=== PATIENT | male | born 1955 | race Caucasian/White ===

== ENCOUNTER 2024-05-06 13:25 | Inpatient (IN) ==
--- NOTE | 2024-05-06 13:59 | Emergency Department Note ---
Impression & Plan Anasarca, Pleural effusion, bilateral, Cirrhosis of liver, Elevated troponin ED Provider Note NAME: KAI ORLANDO AGE: 68 SEX: M : 1955 ARRIVES VIA: Walk-In INFORMANT: Patient ED PROVIDER(S): Catrachito Olivarez DO CHIEF COMPLAINT: shortness of breath HPI: Patient is a 68-year-old male with a past medical history of cirrhosis who presents to the ER for swelling in his bilateral lower extremities. He notes this has been off and on since August. Started again 2 weeks ago. He admits to taking a fair amount of Lasix. He had a CT done which showed fluid in his lungs. He admits to worsening shortness of breath over the past 2 weeks. Denies any headache or change in vision. No chest pain but admits to an upset stomach for about 4 to 5 hours after eating. Denies any vomiting or diarrhea. Does have loose bowel movements. No dysuria, urgency, or frequency. No other exacerbating or remitting factors. ADDITIONAL HISTORY OBTAINED: Per HPI Chronic Medical/Social Conditions Affecting Care: Per HPI PAST MEDICAL HISTORY:See Below PAST SURGICAL HISTORY:See Below FAMILY HISTORY:See Below SOCIAL HISTORY:See Below HOME MEDICATIONS:See Below ALLERGIES:See Below VITALS:See Below PHYSICAL EXAMINATION: GENERAL: Sitting up in bed, alert, well appearing, well nourished, no distress, non-toxic EYE EXAM: normal conjunctiva. PERRL and EOM's grossly intact. OROPHARYNX: mucous membranes are moist NECK: supple, no nuchal rigidity, no adenopathy, non-tender LUNGS: Clear to auscultation. Normal chest wall mechanics HEART: no murmurs, S1 normal and S2 normal ABDOMEN: abdomen soft, non-tender, normo-active bowel sounds, no masses, no rebound or guarding. UPPER EXTREMITIES: upper extremities are grossly normal. LOWER EXTREMITIES: Pitting edema tracking up to hips NEURO EXAM: Normal sensorium, cranial nerves II-XII grossly intact, normal speech, no gross weakness of arms, no gross weakness of legs. MEDICAL DECISION MAKING: Patient is a 68-year-old male who presents ER for the above-stated complaint. IV was established and blood work was obtained. Labs showed no significant leukocytosis and a mild anemia 11. CT performed at 611 MRI shows moderate bilateral pleural effusions which was performed on 04/24/2024. BMP was fairly unremarkable. LFTs and bilirubin was unremarkable. Troponin was positive. proBNP was elevated at nearly thousand. Lipase normal. UA contaminated. Patient was given IV Lasix. Chest x-ray with congestive changes. Patient was updated bedside. Discussed with the hospitalist for further evaluation management treatment. Consults/Care Managements Discussions: Per MDM Triage Nursing notes reviewed. Limited review of prior medical records performed Vital Signs: reviewed and remarkable for HTN Differential diagnosis: Differential diagnoses includes but is not limited to pneumonia, bronchitis, COPD/Asthma exacerbation, pneumothorax, pulmonary embolism, congestive heart failure, acute coronary syndrome ER treatment provided: See below Diagnostics interpreted by me include EKG and cardiac monitoring as listed below: -Cardiac Monitoring: An order was placed for continuous cardiac monitoring. The monitor shows a rate of 70 with sinus rhythm. -ECG: Sinus rhythm rate 67 Normal axis No PVCs QTc 426 -Laboratory studies:Interpreted by me as stated above in MDM and shown below. Imaging studies: Xrays: As interpreted by me: Portable AP upright 1 view of the chest shows congestive changes CTs show: none Procedures:none Critical Care: None Past Med/Surg History Problem List (Updated 05/06/24 @ 20:17 by Catrachito Olivarez DO) Ascites CKD (chronic kidney disease) Anemia Elevated troponin (Acute) Hypoalbuminemia Cirrhosis of liver (Acute) History of SD (myocardial infarction) Anasarca (Acute) Pleural effusion, bilateral (Acute) Social History Smoking Status: Never smoker Feels Safe at Home: Yes Allergies Allergies Allergy/AdvReac Type Severity Reaction Status Date / Time No Known Allergies Allergy Unverified 05/06/24 16:04 Home Meds Home Medications Medication Instructions Recorded Confirmed B12 1 tab PO DAILY 05/06/24 05/06/24 Cinnamon 1 tab PO DAILY 05/06/24 05/06/24 Co Q-10 1 cap PO DAILY 05/06/24 05/06/24 Vitamin C 1 tab PO DAILY 05/06/24 05/06/24 Vitamin D3 1 tab PO DAILY 05/06/24 05/06/24 aspirin 81 mg tablet,delayed 81 mg PO DAILY 05/06/24 05/06/24 release atorvastatin 20 mg tablet 20 mg PO DAILY 05/06/24 05/06/24 fosinopril 40 mg tablet 40 mg PO BID 05/06/24 05/06/24 furosemide 40 mg tablet 80 mg PO BID 05/06/24 05/06/24 magnesium glycinate 200 mg PO DAILY 05/06/24 05/06/24 metoprolol succinate 100 mg 100 mg PO DAILY 05/06/24 05/06/24 tablet,extended release 24 hr potassium chloride 20 mEq 20 meq PO UD 05/06/24 05/06/24 tablet,extended release(part/cryst) spironolactone 50 mg tablet 50 mg PO BID 05/06/24 05/06/24 turmeric 1 cap PO DAILY 05/06/24 05/06/24 zinc 1 tab PO DAILY 05/06/24 05/06/24 Results & Data (ED) Vital Signs Vital Signs - 24 hr 05/06/24 13:29 05/06/24 13:56 05/06/24 14:00 Temperature 36.5 C Temperature Source Temporal Artery Scan Pulse Rate 85 74 Pulse Rate [Apical] 74 Respiratory Rate 20 18 Respiratory Effort / Characteristics Non-Labored Spontaneous Respiratory Depth Normal Respiratory Pattern Regular Blood Pressure 188/96 H Blood Pressure [Left Arm] 182/96 H Blood Pressure Mean 126 Blood Pressure Mean [Left Arm] 124 Blood Pressure Position [Left Arm] Semi-fowlers Pulse Oximetry 98 97 Oxygen Delivery Method Room Air Sepsis Recent Fever Within 48 Hours No Sepsis New/Unexplained Change in Mental Status N/A Sepsis Action Taken by Nursing No Action Required 05/06/24 14:00 05/06/24 15:00 Temperature Temperature Source Pulse Rate 69 Pulse Rate [Apical] 75 Respiratory Rate 20 18 Respiratory Effort / Characteristics Non-Labored Spontaneous Respiratory Depth Normal Respiratory Pattern Regular Blood Pressure Blood Pressure [Left Arm] 165/89 H Blood Pressure Mean Blood Pressure Mean [Left Arm] 114 Blood Pressure Position [Left Arm] Pulse Oximetry 97 96 Oxygen Delivery Method Room Air Room Air Sepsis Recent Fever Within 48 Hours Sepsis New/Unexplained Change in Mental Status Sepsis Action Taken by Nursing Laboratory Data 05/06/24 13:56 05/06/24 13:56 Lab Results 05/06/24 Range/Units 13:56 WBC 6.83 (4.8-10.8) K/ul RBC 3.63 L (4.70-6.10) M/uL Hgb 11.0 L (14.0-18.0) g/dl Hct 32.6 L (42.0-52.0) % MCV 89.8 (80.0-100.0) fL MCH 30.3 (25.0-34.0) pg MCHC 33.7 (32.0-36.0) g/dL RDW Std Deviation 42.5 (36.4-46.3) fL RDW Coeff of Laure 12.7 (11.5-14.5) % Plt Count 337 (130-400) K/uL MPV 10.1 (9.4-12.4) fL Immature Gran % (Auto) 0.3 % Neut % (Auto) 72.1 % Lymph % (Auto) 16.3 % [place] % (Auto) 7.8 % Eos % (Auto) 2.9 % Baso % (Auto) 0.6 % Neut # (Auto) 4.93 (1.40-6.50) K/uL Lymph # (Auto) 1.11 L (1.20-3.40) K/uL [place] # (Auto) 0.53 (0.11-0.59) K/uL Eos # (Auto) 0.20 (0.00-0.50) K/uL Baso # (Auto) 0.04 (0.00-0.20) K/uL Immature Gran # (Auto) 0.02 (0.01-0.20) K/uL Sodium 139 (136-145) mmol/L Potassium 4.6 (3.5-5.1) mmol/L Chloride 111 H (98-107) mmol/L Carbon Dioxide 24 (21-32) mmol/L Anion Gap 4 (3-11) BUN 43 H (6-23) mg/dl Creatinine 1.48 H (0.6-1.4) mg/dl Est Cr Clr Drug Dosing 71.8 ml/min eGFR 51.21 BUN/Creatinine Ratio 29.1 H (10-20) Glucose 102 H (70-99(Fasting)) mg/dl Calcium 8.9 (8.6-10.3) mg/dl Total Bilirubin 0.4 (0.2-1.0) mg/dl AST 19 (13-39) U/L ALT 8 (7-52) U/L Alkaline Phosphatase 42 (34-104) U/L Troponin I High Sens 37.0 H (0-20) pg/ml B-Natriuretic Peptide 992 H (0-100) pg/ml Total Protein 5.2 L (6.0-8.3) gm/dl Albumin 2.0 L (3.4-5.0) gm/dl Globulin 3.2 (2.5-4.0) gm/dl Albumin/Globulin Ratio 0.6 L (0.9-2) Lipase 14 (11-82) U/L Administered Medications Discontinued Medications Furosemide (Furosemide 40 Mg/4 Ml Vial) 40 mg IV NOW STA Stop: 05/06/24 15:00 Last Admin: 05/06/24 15:14 Dose: 40 mg Documented By: CULLEN Furosemide (Furosemide 40 Mg/4 Ml Vial) 40 mg IV ONE STA Stop: 05/06/24 19:15 Last Admin: 05/06/24 19:50 Dose: Not Given Documented By: MARYBETH Furosemide (Furosemide 40 Mg/4 Ml Vial) 80 mg IV ONE STA Stop: 05/06/24 19:17 Last Admin: 05/06/24 19:50 Dose: 80 mg Documented By: MARYBETH Imaging Data Radiologist's Impression: Chest X-Ray 05/06/24 13:54 XR chest 1V portable HISTORY: 68 years-old Male Chest pain, nonspecific COMPARISON: None TECHNIQUE: AP view the chest FINDINGS: Cardiac silhouette is enlarged. Pulmonary vascular congestion. Small pleural effusions with mild bibasilar atelectasis. Coarsening of interstitium. Bones appear grossly intact. IMPRESSION: 1. Cardiomegaly with mild interstitial pulmonary edema. 2. Small pleural effusions with mild bibasilar atelectasis. ACT 112: Negative or not required by law. The above report was generated using voice recognition software. It may contain grammatical, syntax or spelling errors. Electronically signed by: David Ferreira M.D. 05/06/2024 2:55 PM Discharge Plan Visit Data Chief Complaint: Swelling/Edema to Extremity Stated Complaint: LIVER FAILURE, LUNGS HAVE FLUID, EDEMA/FLUID/BODY ED Provider: Catrachito Olivarez Discharge Problem: Anasarca, Pleural effusion, bilateral, Cirrhosis of liver, Elevated troponin Patient Disposition: Admitted As Inpatient Discharge Instructions Interventions: ED Discharge Assessment Last Done: 05/06/24 19:42
[2024-05-06 14:21] LABS: Basophils # (auto) 0.04 K/uL (0.00-0.20); Basophils % (auto) 0.6 %; Eosinophils % (auto) 2.9 %; Hematocrit (blood only) 32.6 % (42.0-52.0); Immature Granulocytes # (auto) 0.02 K/uL (0.01-0.20); Immature Granulocytes % (auto) 0.3 %; Lymphocytes # (auto) 1.11 K/uL (1.20-3.40); Lymphocytes % (auto) 16.3 %; Mean Corpuscular Hemoglobin 30.3 pg (25.0-34.0); Mean Corpuscular Hgb Conc 33.7 g/dL (32.0-36.0); Mean Corpuscular Volume 89.8 fL (80.0-100.0); Mean Platelet Volume 10.1 fL (9.4-12.4); Monocytes # (auto) 0.53 K/uL (0.11-0.59); Monocytes % (auto) 7.8 %; Neutrophils # (auto) 4.93 K/uL (1.40-6.50); Neutrophils % (auto) 72.1 %; Platelet Count 337 K/uL (130-400); RDW Coefficient of Variation 12.7 % (11.5-14.5); RDW Standard Deviation 42.5 fL (36.4-46.3); Red Blood Count 3.63 M/uL (4.70-6.10); White Blood Count 6.83 K/ul (4.8-10.8)
[2024-05-06 14:43] LABS: Albumin Globulin Ratio 0.6 (0.9-2); BUN Creatinine Ratio 29.1 (10-20); Bilirubin,Total 0.4 mg/dl (0.2-1.0); Calcium 8.9 mg/dl (8.6-10.3); Creatinine Clr Calc Pharmacy 71.8 ml/min; Globulin 3.2 gm/dl (2.5-4.0); Potassium 4.6 mmol/L (3.5-5.1); Total Protein 5.2 gm/dl (6.0-8.3)
--- NOTE | 2024-05-06 14:57 | XRay Report ---
XR chest 1V portable HISTORY: 68 years-old Male Chest pain, nonspecific COMPARISON: None TECHNIQUE: AP view the chest FINDINGS: Cardiac silhouette is enlarged. Pulmonary vascular congestion. Small pleural effusions with mild biba silar atelectasis. Coarsening of interstitium. Bones appear grossly intact. IMPRESSION: 1. Cardiomegaly with mild interstitial pulmonary edema. 2. Small pleural effusions with mild bibasilar atelectasis. ACT 112: Negative or not required by law. The above report was generated using voice recognition software. It may contain grammatical, syntax o r spelling errors. Electronically signed by: David Ferreira M.D. 05/06/2024 2:55 PM
[2024-05-06] MEDS: FUROSEMIDE 40 MG/4 ML VIAL IV STA ×3 (15:14→19:50)
--- NOTE | 2024-05-06 15:16 | History & Physical Report ---
Date of Service May 06, 2024 Assessment & Plan (1) Pleural effusion, bilateral: Plan: Worsening LE edema and orthopnea x 2-3 weeks Patient had an A/P CT done at [address] [place] [address] on 04/24 which revealed the following: Moderate to large b/l pleural effusions with comprehensive atelectasis, anasarca, ascites, and edematous changes throughout the mesentery; likely consistent with volume overload Patient is unsure about history of CHF Echocardiogram ordered, pending BNP elevated at 992 on arrival (was previously 756 on 02/22 at [facility]) Patient is normally on Lasix 80 mg BID and spironolactone 50 mg BID + K supplementation Increase Lasix 80 mg IV BID Increase spironolactone to 100 mg p.o. BID Continue K supplementation to 40meq QAM and 20mEq QPM Heart healthy, low-sodium diet (1200 mL fluid restriction) Daily weights Strict I&O monitoring A.m. CBC, BMP, PT/INR (2) History of FL (myocardial infarction): Plan: Per patient, 5 years ago S/p MALU Continue aspirin daily (3) Cirrhosis of liver: Plan: Patient has been trying to get in with [facility] in [place] A/P CT on 04/24 did reveal ascites Recommend outpatient follow-up with senior software developer for full workup (AFP, hep panel, etc.) (4) Ascites: Plan: Ultrasound-guided paracentesis ordered for the morning of 05/07 (5) CKD (chronic kidney disease): Plan: BUN 43, creatinine 1.48 (around baseline 1.46 per [facility] records on 02/22) Avoid nephrotoxic agents where possible UA ordered Pr/Cr ratio ordered, pending (6) Anemia: Plan: Hgb 11.0 on arrival; was most recently 11.3 on 02/22 (per patient's [facility] records) No signs of active bleeding on clinical exam; trend CBC (7) Hypoalbuminemia: (8) Anasarca: (9) Elevated troponin: (10) Nephrotic range proteinuria: Plan Disposition: Admit to [facility] telemetry Full code Heart healthy, low-sodium diet (1200 mL fluid restriction) VTE PPx: Hold chemical DVT PPx prior to paracentesis History of Present Illness Chief Complaint: Swelling/edema to lower extremities Primary Care Provider: Chito Menjivar is a 68-year-old male with PMH of liver cirrhosis, FL, CAD s/p MALU, gastric banding, and CKD. He presented on 05/06 for worsening orthopnea and lower extremity edema x 2-[address] weeks[address] a [address] A/P performed on 04/24 that reported he had fluid throughout his abdomen/testicles/lower extremities bilaterally. Patient follows with [facility], and was recently referred to [facility] in [place] for anasarca suspected secondary to his liver cirrhosis. His PCP ordered the CT A/P when the swelling became progressively worse. While he denies SOB at rest or with exertion, he does endorse orthopnea, which only went away 2 days ago. Patient takes 80 mg of Lasix p.o. twice daily, as well as spironolactone 50 mg twice daily. He took his regular morning medicine today, and reports that his diuretics were increased 1 month ago: Lasix was increased from 1 pill twice daily to 2 pills twice daily, and spironolactone was increased from once daily to twice daily. Despite this, he is still having significant fluid overload. Patient has history of an FL 5 years ago for which she had 1 heart stent placed; he had no shortness of breath or chest pain secondary to the FL, and reports that he takes aspirin daily with good consistency. Patient sleeps in a recliner. No supplemental oxygen or CPAP at night. He reports that he sometimes feels like his heart is fluttering or racing fast, but he denies any chest palpitations or history of A-fib/a flutter; these episodes last around 10 seconds and they occur once every 3 weeks. He does report he has changed his diet recently; after he was told that he had low protein, he has been trying to have 100 grams of protein daily with chicken salads; however this led to sig nificant bloating and he reports he is gained 14 pounds over the past week. He also reports that he was feeling sick on Monday and felt like his skin was tight like "leather" on his flanks, abdomen, and testicles. No history of CHF to his knowledge, but he is unsure. Patient does not ambulate with a walker or cane at baseline. He denies smoking, or tobacco use. No recent alcohol use; he does endorse heavy alcohol use in his 20s. No history of DVT/PE. Patient is hypertensive 165/89 at time of admission; vitals otherwise stable. ED course: Lasix 40 mg IV ROS: Patient endorses orthopnea, abdominal pain secondary to distention/swelling, nausea, dry heaves x 1 day over the weekend, loose stool, "leathery skin", LE edema, decreased urinary frequency (1/3rd of what he was peeing; noticed 2 months ago), and leg heaviness. Patient denies fever, chills, night-sweats, dizziness, lightheadedness, headaches, chest pain, chest palpitations, pleuritic CP, cough, vomiting, burning with urination, blood in the urine/stool, or dysuria. Note - the following labs were obtained from patient in the ED via [facility] portal: [facility] labs on Feb 22: Hgb 11.3 BUN 44 Cr 1.46 eGFR 52 Albumin 1.5 BNP 756 Allergies Allergy/AdvReac Type Severity Reaction Status Date / Time No Known Allergies Allergy Unverified 05/06/24 16:04 Home Medications Medication Instructions Recorded Confirmed Type B12 1 tab PO DAILY 05/06/24 05/06/24 History Cinnamon 1 tab PO DAILY 05/06/24 05/06/24 History Co Q-10 1 cap PO DAILY 05/06/24 05/06/24 History Vitamin C 1 tab PO DAILY 05/06/24 05/06/24 History Vitamin D3 1 tab PO DAILY 05/06/24 05/06/24 History aspirin 81 mg tablet,delayed 81 mg PO DAILY 05/06/24 05/06/24 History release atorvastatin 20 mg tablet 20 mg PO DAILY 05/06/24 05/06/24 History fosinopril 40 mg tablet 40 mg PO BID 05/06/24 05/06/24 History furosemide 40 mg tablet 80 mg PO BID 05/06/24 05/06/24 History magnesium glycinate 200 mg PO DAILY 05/06/24 05/06/24 History metoprolol succinate 100 mg 100 mg PO DAILY 05/06/24 05/06/24 History tablet,extended release 24 hr potassium chloride 20 mEq 20 meq PO UD 05/06/24 05/06/24 History tablet,extended release(part/cryst) spironolactone 50 mg tablet 50 mg PO BID 05/06/24 05/06/24 History turmeric 1 cap PO DAILY 05/06/24 05/06/24 History zinc 1 tab PO DAILY 05/06/24 05/06/24 History Past Med/Surg History Problem List (Updated 05/07/24 @ 07:58 by Donavan Rankin MD) Nephrotic range proteinuria Ascites CKD (chronic kidney disease) Anemia Elevated troponin (Acute) Hypoalbuminemia Cirrhosis of liver (Acute) History of FL (myocardial infarction) Anasarca (Acute) Pleural effusion, bilateral (Acute) Social History Smoking Status: Never smoker Hx Alcohol Use: No Hx Substance Use: No Preferred Language: [place] Communication Ability: Effective Clinching Machine Operator Required: No Beliefs That Will Affect Care: None Current Living Situation: Spouse Other Information That Helps Us Care for You: No Feels Safe at Home: Yes Safety Concerns: Feels Safe At This Time Assistive Devices: Denture - Upper, Denture - Lower and Glasses Review of Systems Review of Systems: See HPI above Physical Exam Physical Exam: General: no acute distress; pleasant affect; non-toxic appearing; cooperative; SpO2 96% on RA HEENT: normocephalic, atraumatic; no scleral icterus; PERRLA; vision and hearing grossly intact Neck: supple; no lymphadenopathy; trachea midline Skin: Significant generalized anasarca; warm, dry without signs of tenting; no cyanosis; no rashes, bruising, lesions, or erythema noted CV: chest wall NTP; RRR; S1/S2 normal; no murmurs/rubs/gallops; pulses intact and symmetric at radial, DP, and PT Lungs: no acute respiratory distress; symmetrical chest wall expansion; clear breath sounds across all lung retana w/o adventitious sounds; no wheezing ABD: Soft, NTP in all 4 quadrants; BS present; no rebound/guarding; moderate distention MSK: no tics or fasciculations; no edema noted in the LEs b/l, nonerythematous LEs: +3 pitting edema extending from the feet up to the thighs bilaterally; +3 pitting edema extends to the flanks and lower back Neuro: A&Ox3; normal mood and affect; fluent speech; no focal deficits; sensation intact and symmetric in lower extremities bilaterally Results & Data Results & Data Vital Signs (Past 12 Hours) Vital Signs Temp Pulse Pulse Resp BP BP Pulse Ox 05/06/24 15:00 75 18 165/89 H 96 11/04/24 14:00 69 20 97 05/06/24 14:00 74 18 182/96 H 97 05/06/24 13:56 74 05/06/24 13:29 36.5 C 85 20 188/96 H 98 O2 Del Method 05/06/24 15:00 Room Air 05/06/24 14:00 Room Air 05/06/24 14:00 Room Air 05/06/24 13:56 05/06/24 13:29 Laboratory Results Abnormal lab results 05/06/24 Range/Units 13:56 RBC 3.63 L (4.70-6.10) M/uL Hgb 11.0 L (14.0-18.0) g/dl Hct 32.6 L (42.0-52.0) % Lymph # (Auto) 1.11 L (1.20-3.40) K/uL Chloride 111 H (98-107) mmol/L BUN 43 H (6-23) mg/dl Creatinine 1.48 H (0.6-1.4) mg/dl BUN/Creatinine Ratio 29.1 H (10-20) Glucose 102 H (70-99(Fasting)) mg/dl Troponin I High Sens 37.0 H (0-20) pg/ml Total Protein 5.2 L (6.0-8.3) gm/dl Albumin 2.0 L (3.4-5.0) gm/dl Albumin/Globulin Ratio 0.6 L (0.9-2) Diagnostic Findings Chest X-Ray 05/06/24 13:54 XR chest 1V portable HISTORY: 68 years-old Male Chest pain, nonspecific COMPARISON: None TECHNIQUE: AP view the chest FINDINGS: Cardiac silhouette is enlarged. Pulmonary vascular congestion. Small pleural effusions with mild bibasilar atelectasis. Coarsening of interstitium. Bones appear grossly intact. IMPRESSION: 1. Cardiomegaly with mild interstitial pulmonary edema. 2. Small pleural effusions with mild bibasilar atelectasis. ACT 112: Negative or not required by law. The above report was generated using voice recognition software. It may contain grammatical, syntax or spelling errors. Electronically signed by: David Ferreira M.D. 05/06/2024 2:55 PM ECG Additional Comments: ECG revealed NSR at 67 bpm; QTc 426 Code Status & VTE Plan Code Status Full code VTE Prophylaxis Plan VTE Prophylaxis will be ordered: Yes Supervising Physician Co-Signing Physician Notes I personally saw and examined the patient. I independently reviewed the labs, EKG, imaging, problem list, medication list, past medical history and family history. I verified all slater points and agree with Ángel Marroquin PA-C with the following exceptions and/or additions: 68 year old male presents to the ER with hypervolemia, shortness of breath on light exertion, liver cirrhosis and ascites on outside CT. O/E HS RRR, no murmurs, Chest bibasal crackles, Abdo distended but soft, non tender, 3+ pedal edema b/l equal A/P Hypervolemic state - suspect mostly secondary to CKD with nephrotic range proteinuria rather than cirrhosis. Increase Lasix to 80mg IV TID given no significant output with 40mg IV in ER and increase spironolactone to 100mg PO BID. I&Os. Daily weight, Low Na diet. TTE to assess for cardiac involvement - pericardial effusion seen on POCUS US CKD with nephrotic range proteinuria - consult nephrology for further workup. Continue fosinopril Liver cirrhosis - consult gastroenterology for further workup, EGD as outpatient, IR paracentesis for mainly diagnostic purposes as not large on POCUS US PG Care Time/CCT Total # of Minutes Spent Total Time Spent with Patient: Total time spent is greater than 50% in coordination of care (as documented) at patient's floor/unit and/or counseling patient: [place] [address] INT INP/OBS CARE 3/75MIN Patient Type New Medical Decision Making High Complexity Diagnoses Pleural effusion, bilateral J90 History of FL (myocardial infarction) I25.2 Cirrhosis of liver K74.60 Ascites R18.8 CKD (chronic kidney disease) N18.9 Anemia D64.9 Hypoalbuminemia E88.09 Anasarca R60.1 Elevated troponin R79.89 Nephrotic range proteinuria R80.9
--- NOTE | 2024-05-06 15:19 | Electrocardiogram Report ---
Test Reason : Blood Pressure : */* mmHG Vent. Rate : 67 BPM Atrial Rate : 67 BPM P-R Int : 166 ms QRS Dur : 82 ms QT Int : 404 ms P-R-T Axes : 17 -15 0 degrees QTcB Int : 426 ms Normal sinus rhythm Normal ECG No previous ECGs available Confirmed by Andrew Marie ([id number]) on 05/06/2024 3:18:53 PM Referred By: Chito Bhardwaj Confirmed By: Andrew Marie
[2024-05-06 17:51] LABS: Appearance Urine Clear (Clear); Bacteria Urine Automated None Seen (None Seen); Bilirubin Urine Negative (Negative); Blood Urine 2+ (Negative); Cast Urine Automated >20 /lpf (0-2); Color Urine Yellow; Glucose Urine UA 1+ (Negative); Hyaline Casts Urine Present /lpf (None Presnt); Ketones Urine Trace (Negative); Leukocyte Esterase Urine Negative (Negative); Nitrite Urine Negative (Negative); Protein Urine 4+ (Negative); Specific Gravity Urine 1.021 (1.000-1.030); Urobilinogen Urine Negative (Negative); WBC Urine Automated 0-5 /hpf (0-5); pH Urine 5.5 (4.5-7.5)
[2024-05-06 18:38] LABS: Creatinine Urine Random 78.4 mg/dl; Total Protein Urine Random > 1000.0 mg/dl (0-11.9)
[2024-05-06] MEDS: lisinopril 40 MG TAB PO SCH (21:02)
[2024-05-06] MEDS: SPIRONOLACTONE 100 MG TAB PO SCH (21:02)
[2024-05-06] MEDS: POTASSIUM CHLORIDE CRTAB 20 MEQ TABCR PO SCH (21:06)
[2024-05-07 06:41] LABS: Basophils # (auto) 0.03 K/uL (0.00-0.20); Basophils % (auto) 0.6 %; Eosinophils # (auto) 0.27 K/uL (0.00-0.50); Eosinophils % (auto) 5.6 %; Hematocrit (blood only) 27.3 % (42.0-52.0); Hemoglobin 9.2 g/dl (14.0-18.0); Immature Granulocytes # (auto) 0.01 K/uL (0.01-0.20); Immature Granulocytes % (auto) 0.2 %; Lymphocytes # (auto) 1.28 K/uL (1.20-3.40); Lymphocytes % (auto) 26.4 %; Mean Corpuscular Hemoglobin 30.5 pg (25.0-34.0); Mean Corpuscular Hgb Conc 33.7 g/dL (32.0-36.0); Mean Corpuscular Volume 90.4 fL (80.0-100.0); Monocytes # (auto) 0.47 K/uL (0.11-0.59); Monocytes % (auto) 9.7 %; Neutrophils # (auto) 2.78 K/uL (1.40-6.50); Neutrophils % (auto) 57.5 %; Platelet Count 260 K/uL (130-400); RDW Coefficient of Variation 12.9 % (11.5-14.5); RDW Standard Deviation 42.5 fL (36.4-46.3); Red Blood Count 3.02 M/uL (4.70-6.10); White Blood Count 4.84 K/ul (4.8-10.8)
[2024-05-07 07:01] LABS: INR 0.9 (0.9-1.1); Prothrombin Time 10.3 Seconds (9.0-12.0)
[2024-05-07 07:20] LABS: Albumin Globulin Ratio 0.6 (0.9-2); Albumin Level 1.6 gm/dl (3.4-5.0); BUN Creatinine Ratio 27.2 (10-20); Bilirubin,Total 0.4 mg/dl (0.2-1.0); Calcium 8.4 mg/dl (8.6-10.3); Creatinine Clr Calc Pharmacy 73.1 ml/min; Globulin 2.6 gm/dl (2.5-4.0); Potassium 4.4 mmol/L (3.5-5.1); Total Protein 4.2 gm/dl (6.0-8.3)
[2024-05-07] MEDS: ATORVASTATIN 20 MG TAB PO SCH (08:00)
[2024-05-07] MEDS: ASPIRIN 81 MG ECTAB PO SCH (08:00)
[2024-05-07] MEDS: METOPROLOL SUCC 50MG EXT REL TAB PO SCH (08:00)
[2024-05-07] MEDS: POTASSIUM CHLORIDE CRTAB 20 MEQ TABCR PO SCH (08:01)
[2024-05-07] MEDS: FUROSEMIDE 40 MG/4 ML VIAL IV SCH (08:01)
[2024-05-07] MEDS ORDERED: MAGNESIUM GLYCINATE 200 MG PO SCH (09:00)
[2024-05-07] MEDS ORDERED: FUROSEMIDE 40 MG/4 ML VIAL IV SCH (09:00)
--- NOTE | 2024-05-07 09:46 | Gastrointestinal Consultation ---
<Statement entered by Armando Hebert MD - 05/07/24 13:40> Patient seen and examined. Case discussed with Ubaldo RENEE. Cirrhosis ? etiology with decompensation of ascites. MELD 10 He had significant ETOH history but this was many years ago. He also could have underlying MASH cirrhosis. 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 Armando Hebert MD Date of Consultation May 07, 2024 Assessment & Plan (1) Ascites: (2) Cirrhosis of liver: Plan Patient with a recently new finding of cirrhosis. unclear of etiology. Discussed case with Dr. Hebert who helped advise on plan. - check chronic liver disease labs. - continue to abstain from etoh use. - ABD imaging w/ AFP every 6 months - Avoid hepatotoxins - Low NA diet, less than 2G daily - Less than 2G acetaminophen containing products daily - he is planned for paracentesis. - would recommend that he keep his upcoming office visits with [facility] as well as hepatology at [facility] [place]. History of Present Illness Reason for Consultation: Ángel Marroquin PA-C Requesting Physician: new onset liver cirrrhosis. Attending Physician: Cristy Cross MD History of Present Illness Patient is a 68 year old male with a past medical history of MO, CAD s/p MALU, gastric banding, and CKD who presented to the ED on 05/06 for worsening orthopnea and lower extremity edema x 2-3 weeks. He admits he has had issues with fluid retention over the past 3-4 months and was using lasix and spironolactone as an outpatient without benefit. He had a CT A/P performed on 04/24 that reportedly had shown fluid throughout his abdomen, testicles, and lower extremities bilaterally. He tells me that this was the first time he was told he had cirrhosis. he denies ever being told he had fatty liver. He admits to heavy alcohol use in his 20s but has not drank since the age of 28. no drug use. no family history. Patient tells me that he has been in touch with [facility] Hepatology in [place] and has an appointment with them coming up in 2 months. He is also set up to see Zoltan Mancuso in [place] in 1 month for his liver cirrhosis. He is planned to have paracentesis on this admission. rest of GI ros are unremarkable. Allergies Allergy/AdvReac Type Severity Reaction Status Date / Time No Known Allergies Allergy Unverified 05/06/24 16:04 Home Medications Medication Instructions Recorded Confirmed Type B12 1 tab PO DAILY 05/06/24 05/06/24 History Cinnamon 1 tab PO DAILY 05/06/24 05/06/24 History Co Q-10 1 cap PO DAILY 05/06/24 05/06/24 History Vitamin C 1 tab PO DAILY 05/06/24 05/06/24 History Vitamin D3 1 tab PO DAILY 05/06/24 05/06/24 History aspirin 81 mg tablet,delayed 81 mg PO DAILY 05/06/24 05/06/24 History release atorvastatin 20 mg tablet 20 mg PO DAILY 05/06/24 05/06/24 History fosinopril 40 mg tablet 40 mg PO BID 05/06/24 05/06/24 History furosemide 40 mg tablet 80 mg PO BID 05/06/24 05/06/24 History magnesium glycinate 200 mg PO DAILY 05/06/24 05/06/24 History metoprolol succinate 100 mg 100 mg PO DAILY 05/06/24 05/06/24 History tablet,extended release 24 hr potassium chloride 20 mEq 20 meq PO UD 05/06/24 05/06/24 History tablet,extended release(part/cryst) spironolactone 50 mg tablet 50 mg PO BID 05/06/24 05/06/24 History turmeric 1 cap PO DAILY 05/06/24 05/06/24 History zinc 1 tab PO DAILY 05/06/24 05/06/24 History Patient History Social History Smoking Status: Never smoker Hx Alcohol Use: No Hx Substance Use: No Preferred Language: Romansh Communication Ability: Effective Programming Internship Required: No Beliefs That Will Affect Care: None Current Living Situation: Spouse Other Information That Helps Us Care for You: No Feels Safe at Home: Yes Safety Concerns: Feels Safe At This Time Assistive Devices: Denture - Upper, Denture - Lower and Glasses Review of Systems Review of Systems: All systems reviewed & are unremarkable except as noted in HPI & below Physical Exam Constitutional: WD/WN, vitals as above Respiratory: normal respiratory effort, lungs clear to auscultation Cardiovascular: Rate/Rhythm: regular rate and regular rhythm Gastrointestinal (Abdomen): abdomen distended with ascites, normal bowel sounds, discomfort to palpation. Psychiatric: Orientation: alert and oriented x 3 Results & Data Vital Signs (Past 12 Hours) Vital Signs Temp Pulse Pulse Resp BP Pulse Ox O2 Del Method 05/07/24 09:00 Room Air 05/07/24 07:13 98.1 F 67 18 168/66 H 95 Room Air 05/07/24 06:58 65 05/07/24 03:21 97.9 F 72 18 151/79 H 95 Room Air 05/07/24 00:18 Room Air 05/07/24 00:00 98.4 F 82 20 170/89 H 95 Room Air 05/06/24 21:50 60 Coding Level of Care Code 84124 INT INP/OBS CARE 2/55MIN Diagnoses Ascites R18.8 Cirrhosis of liver K74.60
--- NOTE | 2024-05-07 09:47 | XCELERA ---
[id number]
[2024-05-07 11:52] LABS: Hep B Surface Ag with confirm Negative (Negative)
[2024-05-07 11:57] LABS: Hep C Ab Rflx HepCQuant RNA Negative (Negative)
[2024-05-07 11:57] LABS: Ferritin 247.9 ng/ml (8-388)
--- NOTE | 2024-05-07 12:49 | Ultrasound Report ---
US abdomen ltd ascites HISTORY: 68 years-old Male Ascites follow-up study in a patient with ascites COMPARISON: Chest radiograph 05/06/2024 TECHNIQUE: Multiple real-time sonographic images of the abdomen were obtained FINDINGS: Right pleural effusion. Heterogeneous liver. No ascites identified. IMPRESSION: No ascites was identified. ACT 112: Negative or not required by law. The above report was generated using voice recognition software. It may contain grammatical, syntax o r spelling errors. Electronically signed by: David Ferreira M.D. 05/07/2024 12:47 PM
--- NOTE | 2024-05-07 13:42 | Nephrology Consultation ---
Date of Consultation May 07, 2024 Assessment & Plan (1) Nephrotic syndrome: (2) Chronic kidney disease, stage 3a: (3) Anemia: (4) Hypoalbuminemia: (5) Anasarca: (6) Pleural effusion, bilateral: (7) Nephrotic range proteinuria: (8) HTN (hypertension): Plan 68-year-old gentleman 68-year-old gentleman presented with almost 7 to 8 months history of progressive bilateral lower extremity edema, changes in kidney function over last few months with normal kidney function until July 2023 associated with anemia and nephrotic syndrome. CT scan done at outpatient facility showed no postrenal obstruction and kidneys are otherwise normal size but noted to have anasarca and concern for cirrhotic change in the liver. Recent day ago showed normal EF. LFTs were normal. Nephrotic syndrome and changes in kidney function over last 6 to 8 months associated with microscopic hematuria and elevated blood pressure raise suspicion for underlying intrinsic renal disease such as membranous nephropathy, FSGS or other etiology. Cannot exclude possibility for paraproteinemia mediated kidney disease either. -- Will check serology, paraproteinemia workup, PLA2R antibody, 24-hour urine for accurate assessment of proteinuria -- Okay to continue on current dose of diuretics, accurate intake and output and adjust diuretics dose accordingly -- Iron study -- GI workup is pending for possible cirrhosis and underlying etiology --CBC, Renal panel, Mg in am. Thank you for allowing me to participate in your patient's care. It was a pleasure to see Otto. History of Present Illness Reason for Consultation: Nephrotic syndrome, stage 3A CKD, Volume overload Attending Physician: Cristy Cross MD History of Present Illness Mr. Otto Rodriguez is a 68-year-old gentleman with past medical history mainly significant for hypertension and coronary artery disease admitted to the hospital with shortness of breath, weight gain and anasarca. Nephrology consult was requested for management of volume overload and nephrotic syndrome. EMR records were reviewed in detail during patient's visit. Otto presented to the hospital yesterday with progressive shortness of breath, weight gain and volume overload for last 5 to 6 weeks. He reports first noticing lower extremity edema sometime in August 20[address] after a long car drive for few days and thought to be secondary to prolonged sitting. Over next few months he would have on and off lower extremity edema which should slightly improved with keeping his leg elevated. Then he made a trip to [place] in December 2023 when he again noticed bilateral lower extremity edema. Since then his lower extremity edema continued to worsen and he has been slowly gaining weight and overall feeling bloated. His primary care physician gave him oral Lasix through this which he did not feel that helpful. Lasix was recently increased as an outpatient but still did not help much. At some point he was also started on spironolactone. He also had lot of workup done over last 8 months. Record review shows his kidney function was normal and his creatinine was 0.8 in J an2023 however, lab in January showed cr 1.5 mg/dl and on admission yesterday his creatinine was 1.5 mg/dl which stayed stable. He had CT abdomen pelvis done as an outpatient on 04/24/2024 showing ascites, anasarca, pleural effusion as well as some early cirrhotic changes in the liver. 2D echo done in January showed normal EF, no significant valvular abnormality. Was noted to have high-grade proteinuria and hypoalbuminemia on admission. Urinalysis showed 4+ proteinuria and microscopic hematuria but no bacteria. Lab was notable for creatinine 1.5, albumin was 2.0. BNP 850. Liver function test and bilirubin was normal. Hemoglobin was 11 but he had hemoglobin above 13 in July. Was started on Lasix 80 mg IV 3 times daily and spironolactone 100 mg twice a day. Continued on lisinopril 40 mg twice a day. He reports that he used to bike more than 25 miles per day until few months ago but lately he has not been able to do that. Never smoker. Remote history of heavy drinking of alcohol in his 20s but none lately. Retired. Past medical history significant for hypertension which has been generally well- controlled on fosinopril and metoprolol at home. History of coronary artery disease, status post PCI and stent about 5 years ago. No history of diabetes. Overall he reports slight improvement in shortness of breath this morning. Allergies Allergy/AdvReac Type Severity Reaction Status Date / Time No Known Allergies Allergy Unverified 05/06/24 16:04 Home Medications Medication Instructions Recorded Confirmed Type B12 1 tab PO DAILY 05/06/24 05/06/24 History Cinnamon 1 tab PO DAILY 05/06/24 05/06/24 History Co Q-10 1 cap PO DAILY 05/06/24 05/06/24 History Vitamin C 1 tab PO DAILY 05/06/24 05/06/24 History Vitamin D3 1 tab PO DAILY 05/06/24 05/06/24 History aspirin 81 mg tablet,delayed 81 mg PO DAILY 05/06/24 05/06/24 History release atorvastatin 20 mg tablet 20 mg PO DAILY 05/06/24 05/06/24 History fosinopril 40 mg tablet 40 mg PO BID 05/06/24 05/06/24 History furosemide 40 mg tablet 80 mg PO BID 05/06/24 05/06/24 History magnesium glycinate 200 mg PO DAILY 05/06/24 05/06/24 History metoprolol succinate 100 mg 100 mg PO DAILY 05/06/24 05/06/24 History tablet,extended release 24 hr potassium chloride 20 mEq 20 meq PO UD 05/06/24 05/06/24 History tablet,extended release(part/cryst) spironolactone 50 mg tablet 50 mg PO BID 05/06/24 05/06/24 History turmeric 1 cap PO DAILY 05/06/24 05/06/24 History zinc 1 tab PO DAILY 05/06/24 05/06/24 History Patient History Social History Smoking Status: Never smoker Hx Alcohol Use: No Hx Substance Use: No Preferred Language: Syriac Communication Ability: Effective Flying I Instructor Required: No Beliefs That Will Affect Care: None Current Living Situation: Spouse Other Information That Helps Us Care for You: No Feels Safe at Home: Yes Safety Concerns: Feels Safe At This Time Assistive Devices: Denture - Upper, Denture - Lower and Glasses Review of Systems Review of Systems: Detailed review of system was done and pertinent positives and negatives are mentioned above. Physical Exam Constitutional: WD/WN, vitals as above + obese and + edematous; no acute distress Eyes: + anicteric sclerae Neck: normal visual inspection Respiratory: no respiratory distress Auscultation: lungs clear to auscultation bilaterally; no crackles and no wheezes Cardiovascular: Rate/Rhythm: regular rate and regular rhythm Heart Sounds: normal S1 and normal S2 Extremities: + edema Gastrointestinal (Abdomen): Percussion/Palpation: abdomen soft; abdomen nontender Musculoskeletal: Extremities: extremities normal to inspection Skin: no rashes, warm and dry Neurologic: no focal motor deficits Psychiatric: Orientation: alert and oriented x 3 Affect: euthymic affect Results & Data Vital Signs (Past 12 Hours) Vital Signs Temp Pulse Pulse Resp BP Pulse Ox O2 Del Method 05/07/24 12:04 36.7 C 71 18 197/103 H 97 Room Air 05/07/24 11:16 36.6 C 63 18 164/79 H 95 Room Air 05/07/24 09:00 Room Air 05/07/24 07:13 36.7 C 67 18 168/66 H 95 Room Air 05/07/24 06:58 65 05/07/24 03:21 36.6 C 72 18 151/79 H 95 Room Air PG Care Time/CCT Total # of Minutes Spent Total Time Spent with Patient: Total time spent is greater than 50% in coordination of care (as documented) at patient's floor/unit and/or counseling patient: Coding Level of Care Code 95456 INT INP/OBS CARE 375MIN Diagnoses Nephrotic syndrome N04.9 Chronic kidney disease, stage 3a N18.31 Anemia D64.9 Hypoalbuminemia E88.09 Anasarca R60.1 Pleural effusion, bilateral J90 Nephrotic range proteinuria R80.9 HTN (hypertension) I10
--- NOTE | 2024-05-07 13:59 | Hospitalist Progress Note ---
Date of Service May 07, 2024 Assessment & Plan (1) Nephrotic range proteinuria: Plan: Patient presents with weight gain, significant lower extremity and scrotal edema, orthopnea, much worse in the last 2 to 3 weeks Patient had an outside CT abdomen/pelvis done in a workup for cirrhosis which showed moderate to large bilateral pleural effusions with atelectasis, anasarca, ascites, and edematous changes throughout the mesentery He was placed on spironolactone and furosemide by his PCP as an outpatient and has had minimal improvement in his lower extremity edema but pleural effusions here are small and the ascites is now nonexistent on abdominal ultrasound Echocardiogram is normal,BNP is elevated at 992 UA with 4+ proteinuria, spot protein to creatinine ratio is quite elevated Doubtful that his anasarca is from cirrhosis-nodular contour of the liver seen on CT but no synthetic liver dysfunction noted Continue diuresis with Lasix 80 Mg IV 3 times daily, spironolactone Appreciate nephrology consultation-ordered SPEP, UPEP, 24-hour urine protein, ANCA, complement, free kappa lambda light chain, glomerular basement membrane antibody, phospholipase A2 receptor antibody Follow BMP Continue Daily weights, strict I's and O's, low-sodium diet, fluid restriction (2) CKD (chronic kidney disease): Plan: BUN 43, creatinine 1.48 (around baseline 1.46 per [facility] records on 02/22) Avoid nephrotoxic agents where possible With nephrotic range proteinuria as above Appreciate nephrology consultation (3) Elevated troponin: Plan: Troponin with mild elevation at 37 then 35 several hours later-myocardial demand ischemia in the setting of chronic kidney disease ECG without ischemic changes, no chest pain Echocardiogram without wall motion abnormalities (4) Anemia: Plan: Hgb 11.0 on arrival; was most recently 11.3 on 02/22 (per patient's [facility] records), now decreased despite diuresis to 9.2, normocytic Iron studies are normal with transferrin saturation 37% Check B12, TSH, and folate in the morning No signs of active bleeding on clinical exam; trend CBC (5) Cirrhosis of liver: Plan: Patient has been trying to get in with [facility] GI in [place] A/P CT on 04/24 did reveal ascites and nodular contour to liver likely from fatty liver-he has been eating low carb diet now for 6 months but has been obese his whole adult life No eveidence of liver dysfunction-INR, platelets normal ,etc Ascites improved on diuretics Anasarca from nephrotic syndrome GI consult appreciated-f/u on labs ordered and f/u outpt with [facility] as scheduled for 06/06 (6) Ascites: Plan: Ultrasound-guided paracentesis ordered but not completed as he had no ascites- improved since previous outside CT scan due to being on lasix/aldactone (7) History of [place] (myocardial infarction): Plan: Per patient, 5 years ago S/p MALU Continue aspirin, atorvastatin, metoprolol No acute issues Plan Disposition: Continued stay on MedSurg telemetry Full code VTE PPx: He is high risk for DVT given nephrotic syndrome-add on heparin SQ Admission and Anticipated Discharge Date Admission Date: May 06, 2024 Subjective Patient reports swelling in his legs is improving with diuresis. I discussed his case with nephrology. Telemetry with normal sinus rhythm, PVCs, rates in the 50s to 70s Physical Exam Constitutional: WD/WN, vitals as above + morbidly obese Respiratory: normal respiratory effort; no cough Auscultation: + diminished lung sounds (Bibasilar); no crackles, no rhonchi and no wheezes Cardiovascular: Rate/Rhythm: regular rate and regular rhythm Heart Sounds: no murmur Extremities: + edema (3+ pitting edema to the waist bilaterally) Gastrointestinal (Abdomen): normal bowel sounds, soft, nontender, no hepatosplenomegaly Skin: + rash (A few small scattered erythemato us papules on lower legs bilaterally) Psychiatric: A+Ox3, euthymic affect Results & Data Results & Data Vital Signs (Past 12 Hours) Vital Signs Temp Pulse Pulse Resp BP Pulse Ox O2 Del Method 05/07/24 13:36 66 05/07/24 12:04 36.7 C 71 18 197/103 H 97 Room Air 05/07/24 11:16 36.6 C 63 18 164/79 H 95 Room Air 05/07/24 09:00 Room Air 05/07/24 07:13 36.7 C 67 18 168/66 H 95 Room Air 05/07/24 06:58 65 05/07/24 03:21 36.6 C 72 18 151/79 H 95 Room Air Laboratory Results CBC, BMP, urinalysis, INR, iron studies reviewed PG Care Time/CCT Total # of Minutes Spent Total Time Spent with Patient: Total time spent is greater than 50% in coordination of care (as documented) at patient's floor/unit and/or counseling patient: Coding Level of Care Code 60631 SUB INP/OBS CARE 3/50MIN Diagnoses Nephrotic range proteinuria R80.9 CKD (chronic kidney disease) N18.9 Elevated troponin R79.89 Anemia D64.9 Cirrhosis of liver K74.60 Ascites R18.8 History of [place] (myocardial infarction) I25.2
[2024-05-07] MEDS: amLODIPine BESYLATE 5 MG TAB PO SCH (15:26)
[2024-05-07] MEDS: HEPARIN SOD 5,000 UNIT/0.5 ML VIAL SQ SCH (20:33)
[2024-05-08 07:54] LABS: Basophils # (auto) 0.03 K/uL (0.00-0.20); Basophils % (auto) 0.6 %; Eosinophils # (auto) 0.34 K/uL (0.00-0.50); Eosinophils % (auto) 6.4 %; Hematocrit (blood only) 30.6 % (42.0-52.0); Hemoglobin 10.1 g/dl (14.0-18.0); Immature Granulocytes # (auto) 0.01 K/uL (0.01-0.20); Immature Granulocytes % (auto) 0.2 %; Lymphocytes # (auto) 1.22 K/uL (1.20-3.40); Lymphocytes % (auto) 22.8 %; Mean Corpuscular Hemoglobin 30.3 pg (25.0-34.0); Mean Corpuscular Volume 91.9 fL (80.0-100.0); Mean Platelet Volume 9.8 fL (9.4-12.4); Monocytes # (auto) 0.48 K/uL (0.11-0.59); Neutrophils # (auto) 3.27 K/uL (1.40-6.50); Platelet Count 296 K/uL (130-400); RDW Coefficient of Variation 12.8 % (11.5-14.5); RDW Standard Deviation 42.5 fL (36.4-46.3); Red Blood Count 3.33 M/uL (4.70-6.10); White Blood Count 5.35 K/ul (4.8-10.8)
[2024-05-08 08:15] LABS: BUN Creatinine Ratio 23.4 (10-20); Calcium 8.5 mg/dl (8.6-10.3); Creatinine Clr Calc Pharmacy 64.5 ml/min; Potassium 4.5 mmol/L (3.5-5.1)
[2024-05-08 08:30] LABS: Thyroid Stimulating Hormone 12.586 uIu/ml (0.300-4.500)
[2024-05-08 08:39] LABS: Folate (Folic Acid),Ser orPlas 6.56 ng/ml (>5.38)
[2024-05-08 08:40] LABS: Vitamin B12 > 1500 pg/ml (180-914)
[2024-05-08 09:05] LABS: T4 Free Thyroxine 0.98 ng/dl (0.61-1.60)
--- NOTE | 2024-05-08 09:39 | Gastroenterology Progress Note ---
<Statement entered by Armando Hebert MD - 05/08/24 14:38> Patient seen and examined. Case discussed with Ubaldo RENEE. So far, CLD w/u negative but other studies pending. Will need OP follow up. IP GI Service will sign off. Pt should have OP f/u either at [place] or wherever he decides to go and results can be obtained of pending tests. Armando Hebert MD Date of Service May 08, 2024 Assessment & Plan (1) Cirrhosis of liver: Plan: Would await chronic liver disease labs and follow up on this as an outpatient. He tells me he plans to follow with [facility] next month and is planned to see hepatology at [facility]. He should keep these appointments. Admission and Anticipated Discharge Date Admission Date: May 06, 2024 Subjective Patient went to get a paracentesis yesterday but it was not completed due to not having significant ascites. chronic liver disease labs pending. he tolerated breakfast. biggest concern is still swelling in his extremities. Review of Systems Review of Systems: All systems reviewed & are unremarkable except as noted in HPI & below Physical Exam Constitutional: WD/WN, vitals as above Respiratory: normal respiratory effort, lungs clear to auscultation Cardiovascular: Rate/Rhythm: regular rate and regular rhythm Gastrointestinal (Abdomen): normal bowel sounds, soft, nontender, no hepatosplenomegaly Psychiatric: Orientation: alert and oriented x 3 Affect: euthymic affect Results & Data Results & Data Vital Signs (Past 12 Hours) Vital Signs Temp Pulse Pulse Resp BP Pulse Ox O2 Del Method 05/08/24 09:21 Room Air 05/08/24 08:09 98.1 F 71 20 168/94 H 95 Room Air 05/08/24 07:14 71 05/08/24 04:03 97.9 F 72 20 160/88 H 96 Room Air 05/08/24 00:19 98.2 F 72 20 163/92 H Room Air 05/07/24 21:55 78 Coding Level of Care Code 00576 SUB INP/OBS CARE 07/27MIN Diagnoses Cirrhosis of liver K74.60
--- NOTE | 2024-05-08 10:17 | Nephrology Progress Note ---
Date of Service May 08, 2024 Assessment & Plan (1) Nephrotic syndrome: (2) Chronic kidney disease, stage 3a: (3) Anemia: (4) Hypoalbuminemia: (5) Anasarca: (6) Pleural effusion, bilateral: (7) Nephrotic range proteinuria: (8) HTN (hypertension): (9) Acute kidney injury: Plan 68-year-old gentleman 68-year-old gentleman presented with almost 7 to 8 months history of progressive bilateral lower extremity edema, changes in kidney function over last few months with normal kidney function until July 2023 associated with anemia and nephrotic syndrome. CT scan done at outpatient facility showed no postrenal obstruction and kidneys are otherwise normal size but noted to have anasarca and concern for cirrhotic change in the liver. Recent day ago showed normal EF. LFTs were normal. Nephrotic syndrome and changes in kidney function over last 6 to 8 months asso ciated with microscopic hematuria and elevated blood pressure raise suspicion for underlying intrinsic renal disease such as membranous nephropathy, FSGS or other etiology. Cannot exclude possibility for paraproteinemia mediated kidney disease either. Abdominal ultrasound yesterday did not show any ascites fluid in the abdomen. -- Okay to continue on current dose of diuretics, accurate intake and output and adjust diuretics dose accordingly -- continue Lasix 80 IV BID. --continue Lisinopril 40 bid for now -- Serology, paraproteinemia workup, PLA2R antibody, 24-hour urine for accurate assessment of proteinuria pending. Admission and Anticipated Discharge Date Admission Date: May 06, 2024 Luisana Menjivar was seen and evaluated this morning. He continues to have significant volume overload and bilateral upper and lower extremity edema but overall feelin g better. He has been walking around the hallway. Denies shortness of breath or chest pain. Kidney function slightly worsened with high-dose of diuretics and overall net negative, creatinine 1.7. 24-hour urine proteinuria is pending Review of Systems Review of Systems: Detailed review of system was done and pertinent positives and negatives are mentioned above. Physical Exam Constitutional: WD/WN, vitals as above + obese and + edematous; no acute distress Eyes: + anicteric sclerae Neck: normal visual inspection Respiratory: no respiratory distress Auscultation: lungs clear to auscultation bilaterally; no crackles and no wheezes Cardiovascular: Rate/Rhythm: regular rate and regular rhythm Heart Sounds: normal S1 and normal S2 Extremities: + edema Musculoskeletal: Extremities: extremities normal to inspection Skin: no rashes, warm and dry Neurologic: no focal motor deficits Psychiatric: Orientation: alert and oriented x 3 Affect: euthymic affect Results & Data Vital Signs (Past 12 Hours) Vital Signs Temp Pulse Pulse Resp BP Pulse Ox O2 Del Method 05/08/24 09:21 Room Air 05/08/24 08:09 36.7 C 71 20 168/94 H 95 Room Air 05/08/24 07:14 71 05/08/24 04:03 36.6 C 72 20 160/88 H 96 Room Air 05/08/24 00:19 36.8 C 72 20 163/92 H Room Air PG Care Time/CCT Total # of Minutes Spent Total Time Spent with Patient: Total time spent is greater than 50% in coordination of care (as documented) at patient's floor/unit and/or counseling patient: Coding Level of Care Code 90338 SUB INP/OBS CARE 3/50MIN Diagnoses Nephrotic syndrome N04.9 Chronic kidney disease, stage 3a N18.31 Anemia D64.9 Hypoalbuminemia E88.09 Anasarca R60.1 Pleural effusion, bilateral J90 Nephrotic range proteinuria R80.9 HTN (hypertension) I10 Acute kidney injury N17.9
[2024-05-08 13:54] LABS: Urine Total Protein 772.7 mg/dl
[2024-05-08 14:31] LABS: Total Protein 24 Hour Urine 24726.4 mg/24 Hr (0-149.1)
[2024-05-08 15:26] LABS: Hepatitis B Surface Ab Quant < 3.00 mIU/mL (>or=10mIU/mL Immune); Hepatitis B Surface Antibody Non-Immune
[2024-05-08] MEDS: FUROSEMIDE 40 MG/4 ML VIAL IV SCH (16:20)
--- NOTE | 2024-05-08 16:21 | Hospitalist Progress Note ---
Date of Service May 08, 2024 Assessment & Plan (1) Nephrotic range proteinuria: Plan: Patient presents with weight gain, significant lower extremity and scrotal edema, orthopnea, much worse in the last 2 to 3 weeks (but ongoing for 6-7 months) Patient had an outside CT abdomen/pelvis done in a workup for cirrhosis which showed moderate to large bilateral pleural effusions with atelectasis, anasarca, ascites, and edematous changes throughout the mesentery--> referred to hospital for admission He was placed on spironolactone and furosemide by his PCP as an outpatient and has had minimal improvement in his lower extremity edema but pleural effusions here are small and the ascites is now nonexistent on abdominal ultrasound Echocardiogram is normal,BNP is elevated at 992 UA with 4+ proteinuria, 2+ blood with 11-30 RBCs/hpf, spot protein to creatinine ratio is quite elevated He has 24 grams of protein in 24 hour urine protein collection Albumin severely low at 1.6 Operator Vacuum 1.5 on admission No tract obstruction on reent outside CT abd/pel His anasarca is not from cirrhosis-nodular contour of the liver seen on CT but no synthetic liver dysfunction noted, but rather is from nephrotic syndrome Nephrology suspects possible intrinsic renal disease such as membranous nephropathy, FSGS or other etiology. Cannot exclude possibility for paraproteinemia mediated kidney disease either. Diuresing somewhat but remains massively volume overloaded. Operator Vacuum did increase slightly to 1.7 Continue diuresis but decrease frequency of lasix 80 Mg IV to bid Continue spironolactone SPEP, UPEP, ANCA, complement, free kappa lambda light chain, glomerular basement membrane antibody, phospholipase A2 receptor antibody all drawn and pending Follow BMP Continue Daily weights, strict I's and O's, low-sodium diet, fluid restriction Will need close outpatient Nephrology follow up after discharge (2) CKD (chronic kidney disease): Plan: BUN 43, creatinine 1.48 (around baseline 1.46 per [facility] records on 02/22) Avoid nephrotoxic agents where possible With nephrotic range proteinuria as above Appreciate nephrology consultation (3) Elevated troponin: Plan: Troponin with mild elevation at 37 then 35 several hours later-myocardial demand ischemia in the setting of chronic kidney disease ECG without ischemic changes, no chest pain Echocardiogram without wall motion abnormalities (4) Anemia: Plan: Hgb 11.0 on arrival; was most recently 11.3 on 02/22 (per patient's [facility] records), now decreased despite diuresis to 9.2, normocytic Iron studies are normal with transferrin saturation 37% B12, folate normal TSH high at 12, normal FT4--> could be from poor gut absorption of T4 due to gut wall edema? Recommend repeating TSH in 1 month No signs of active bleeding on clinical exam; trend CBC (5) Cirrhosis of liver: Plan: Patient has been trying to get in with [facility] GI in [place] A/P CT on 04/24 did reveal ascites and nodular contour to liver likely from fatty liver-he has been eating low carb diet now for 6 months but has been obese his whole adult life No evidence of liver dysfunction-INR, platelets normal ,etc Ascites improved on diuretics Anasarca from nephrotic syndrome GI consult appreciated-f/u on labs ordered for workup for cause of cirrhosis and f/u outpt with [facility] as scheduled for 06/06 (6) Ascites: Plan: Ultrasound-guided paracentesis ordered but not completed as he had no ascites- improved since previous outside CT scan due to being on lasix/aldactone (7) HTN (hypertension): Plan: BPs improved now with adding on amlodipine continue to monitor and adjust meds as needed diuresing (8) History of [place] (myocardial infarction): Plan: Per patient, 5 years ago S/p MALU Continue aspirin, atorvastatin, metoprolol No acute issues Plan Disposition: Continued stay but will downgrade off tele to med/surg unit Full code VTE PPx: He is high risk for DVT given nephrotic syndrome-continue heparin SQ Admission and Anticipated Discharge Date Admission Date: May 06, 2024 Subjective Pt with ongoing swelling in legs and has noticed increased swelling in his arms and hands today. He has been walking the hallways and denies SOB. Tele with NSR, rates 50-60s he requests the tele heart monitor be removed if possible Physical Exam Constitutional: WD/WN, vitals as above + morbidly obese Respiratory: normal respiratory effort; no cough Auscultation: + diminished lung sounds (Bibasilar); no crackles, no rhonchi and no wheezes Cardiovascular: Rate/Rhythm: regular rate and regular rhythm Heart Sounds: no murmur Extremities: + edema (3+ pitting edema LEs to the waist bilaterally,2+ edema arms bilat) Gastrointestinal (Abdomen): normal bowel sounds, soft, nontender, no hepatosplenomegaly Skin: + rash (A few small scattered erythemato us papules on lower legs bilaterally) Psychiatric: A+Ox3, euthymic affect Results & Data Results & Data Vital Signs (Past 12 Hours) Vital Signs Temp Pulse Pulse Resp BP Pulse Ox O2 Del Method 05/08/24 15:47 36.5 C 69 20 154/88 H 96 Room Air 05/08/24 14:05 71 05/08/24 12:52 36.8 C 69 20 166/91 H 97 Room Air 05/08/24 09:21 Room Air 05/08/24 08:09 36.7 C 71 20 168/94 H 95 Room Air 05/08/24 07:14 71 Laboratory Results CBC, BMP, TSH, FT4, Fe studies, B12, folate reviewed PG Care Time/CCT Total # of Minutes Spent Total Time Spent with Patient: Total time spent is greater than 50% in coordination of care (as documented) at patient's floor/unit and/or counseling patient: Coding Level of Care Code 49886 SUB INP/OBS CARE 3/50MIN Diagnoses Nephrotic range proteinuria R80.9 CKD (chronic kidney disease) N18.9 Elevated troponin R79.89 Anemia D64.9 Cirrhosis of liver K74.60 Ascites R18.8 HTN (hypertension) I10 History of [place] (myocardial infarction) I25.2
[2024-05-09 06:17] LABS: Basophils # (auto) 0.03 K/uL (0.00-0.20); Basophils % (auto) 0.6 %; Eosinophils # (auto) 0.37 K/uL (0.00-0.50); Eosinophils % (auto) 7.8 %; Hematocrit (blood only) 27.5 % (42.0-52.0); Hemoglobin 9.2 g/dl (14.0-18.0); Immature Granulocytes # (auto) 0.01 K/uL (0.01-0.20); Immature Granulocytes % (auto) 0.2 %; Lymphocytes # (auto) 1.16 K/uL (1.20-3.40); Lymphocytes % (auto) 24.6 %; Mean Corpuscular Hemoglobin 30.7 pg (25.0-34.0); Mean Corpuscular Hgb Conc 33.5 g/dL (32.0-36.0); Mean Corpuscular Volume 91.7 fL (80.0-100.0); Mean Platelet Volume 10.1 fL (9.4-12.4); Monocytes # (auto) 0.46 K/uL (0.11-0.59); Monocytes % (auto) 9.7 %; Neutrophils # (auto) 2.69 K/uL (1.40-6.50); Neutrophils % (auto) 57.1 %; Platelet Count 244 K/uL (130-400); RDW Coefficient of Variation 12.8 % (11.5-14.5); RDW Standard Deviation 42.5 fL (36.4-46.3); White Blood Count 4.72 K/ul (4.8-10.8)
[2024-05-09 06:30] LABS: BUN Creatinine Ratio 23.5 (10-20); Calcium 8.2 mg/dl (8.6-10.3); Creatinine Clr Calc Pharmacy 65.1 ml/min; Potassium 4.8 mmol/L (3.5-5.1)
[2024-05-09 07:17] LABS: Creatinine Ur 100 mg/dL (20-320); Protein, Urine Random 928 mg/dL (5-25); Ur Albumin % 70 %; Ur Alpha-1-globulin % 1 %; Ur Alpha-2-globulin % 9 %; Ur Beta Globulin % 8 %; Ur Gamma Globulin % 12 %; Ur Protein/Creat Ratio mg/g 9280 mg/g creat (25-148); Urine Abnormal Protein Band 1 30 mg/dL (NONE DETECTED); Urine Abnormal Protein Band 2 DNR mg/dL (NONE DETECTED)
--- NOTE | 2024-05-09 10:44 | Nephrology Progress Note ---
Date of Service May 09, 2024 Assessment & Plan (1) Nephrotic syndrome: (2) Chronic kidney disease, stage 3a: (3) Anemia: (4) Hypoalbuminemia: (5) Anasarca: (6) Pleural effusion, bilateral: (7) Nephrotic range proteinuria: (8) HTN (hypertension): (9) Acute kidney injury: Plan 68-year-old gentleman 68-year-old gentleman presented with almost 7 to 8 months history of progressive bilateral lower extremity edema, changes in kidney function over last few months with normal kidney function until July 2023 associated with anemia and nephrotic syndrome. CT scan done at outpatient facility showed no postrenal obstruction and kidneys are otherwise normal size but noted to have anasarca and concern for cirrhotic change in the liver. Recent day ago showed normal EF. LFTs were normal. Nephrotic syndrome and changes in kidney function over last 6 to 8 months asso ciated with microscopic hematuria and elevated blood pressure raise suspicion for underlying intrinsic renal disease such as membranous nephropathy, FSGS or other etiology. Cannot exclude possibility for paraproteinemia mediated kidney disease either. Abdominal ultrasound yesterday did not show any ascites fluid in the abdomen. --Change Lasix to 80 mg orally twice daily, continue on spironolactone 100 mg twice a day, accurate intake and output and adjust diuretics dose accordingly -- increase amlodipine to 10 mg daily --Epogen 40,000 units x 1 dose now --continue Lisinopril 40 bid for now --If albumin remains significantly low, may need to start on anticoagulation considering high risk for thromboembolism. Admission and Anticipated Discharge Date Admission Date: May 06, 2024 Luisana Menjivar was seen and evaluated this morning. He continues to have significant volume overload and bilateral lower extremity edema but responding to diuretics with net negative about 1 L each day, with down to 150 kg from 158 kg on admission. Overall feeling better. He has been walking around the hallway. Appetite decent and does not feel bloated anymore. Scrotal swelling improved. blood pressure remains elevated. Hemoglobin low but has adequate iron store, B12 and folate. 24-hour urine proteinuria of almost 25 g. Review of Systems Review of Systems: Detailed review of system was done and pertinent positives and negatives are mentioned above. Physical Exam Constitutional: WD/WN, vitals as above + obese and + edematous; no acute distress Eyes: + anicteric sclerae Neck: normal visual inspection Respiratory: no respiratory distress Auscultation: lungs clear to auscultation bilaterally; no crackles and no wheezes Cardiovascular: Rate/Rhythm: regular rate and regular rhythm Heart Sounds: normal S1 and normal S2 Extremities: + edema (3 + b/l LE edema) Musculoskeletal: Extremities: extremities normal to inspection Skin: no rashes, warm and dry Neurologic: no focal motor deficits Psychiatric: Orientation: alert and oriented x 3 Affect: euthymic affect Results & Data Vital Signs (Past 12 Hours) Vital Signs Temp Pulse Resp BP Pulse Ox O2 Del Method 05/09/24 07:34 36.6 C 59 L 18 160/83 H 93 Room Air 05/09/24 03:59 36.6 C 61 20 144/75 H 97 Room Air 05/08/24 23:07 36.6 C 66 20 141/84 H 97 Room Air PG Care Time/CCT Total # of Minutes Spent Total Time Spent with Patient: Total time spent is greater than 50% in coordination of care (as documented) at patient's floor/unit and/or counseling patient: Coding Level of Care Code 09913 SUB INP/OBS CARE 3/50MIN Diagnoses Nephrotic syndrome N04.9 Chronic kidney disease, stage 3a N18.31 Anemia D64.9 Hypoalbuminemia E88.09 Anasarca R60.1 Pleural effusion, bilateral J90 Nephrotic range proteinuria R80.9 HTN (hypertension) I10 Acute kidney injury N17.9
[2024-05-09] MEDS: EPOETIN ALFA 40,000 UNITS/ML VIAL SQ STA (11:32)
--- NOTE | 2024-05-09 13:19 | Hospitalist Progress Note ---
Date of Service May 09, 2024 Assessment & Plan (1) Nephrotic range proteinuria: Plan: Nephrology suspects possible intrinsic renal disease Continue diuresis lasix 80 Mg IV to bid Continue spironolactone SPEP, UPEP, ANCA, complement, free kappa lambda light chain, glomerular basement membrane antibody, phospholipase A2 receptor antibody all drawn and pending Follow BMP Continue Daily weights, strict I's and O's, low-sodium diet, fluid restriction Cr 1.66 today (2) CKD (chronic kidney disease): Plan: BUN 43, creatinine 1.66 (around baseline 1.46 per [facility] records on 02/22) Avoid nephrotoxic agents where possible With nephrotic range proteinuria as above Appreciate nephrology consultation (3) Elevated troponin: Plan: Troponin with mild elevation at 37 then 35 several hours later-myocardial demand ischemia in the setting of chronic kidney disease ECG without ischemic changes, no chest pain Echocardiogram without wall motion abnormalities (4) Anemia: Plan: Hgb 11.0 on arrival; was most recently 11.3 on 02/22 (per patient's [facility] records), now decreased despite diuresis to 9.2, normocytic Iron studies are normal with transferrin saturation 37% B12, folate normal TSH high at 12, normal FT4--> could be from poor gut absorption of T4 due to gut wall edema? Recommend repeating TSH in 1 month No signs of active bleeding on clinical exam; trend CBC (5) Cirrhosis of liver: Plan: Patient has been trying to get in with [facility] GI in [place] A/P CT on 04/24 did reveal ascites and nodular contour to liver likely from fatty liver-he has been eating low carb diet now for 6 months but has been obese his whole adult life No evidence of liver dysfunction-INR, platelets normal ,etc Ascites improved on diuretics Anasarca from nephrotic syndrome GI consult appreciated-f/u on labs ordered for workup for cause of cirrhosis and f/u outpt with [facility] as scheduled for 06/06 (6) Ascites: Plan: Ultrasound-guided paracentesis ordered but not completed as he had no ascites- improved since previous outside CT scan due to being on lasix/aldactone (7) HTN (hypertension): Plan: BPs improved now with adding on amlodipine continue to monitor and adjust meds as needed diuresing (8) History of [place] (myocardial infarction): Plan: Continue aspirin, atorvastatin, metoprolol No acute issues Plan Disposition: Continued stay but will downgrade off tele to med/surg unit Full code VTE PPx: He is high risk for DVT given nephrotic syndrome-continue heparin SQ Admission and Anticipated Discharge Date Admission Date: May 06, 2024 Subjective Pt states he is feeling less bloated, and walking around the halls well. He is continuing to urinate and feels decreased edema. Review of Systems Review of Systems: CONST: Negative for fever, body aches and chills. HENT: Negative for neck pain/stiffness, headache, congestion, sore throat, swelling. EYES: Negative for discharge/pain or vision changes. RESP: Negative for cough/hemoptysis and shortness of breath. CV: Negative chest pain, difficulty breathing, palpitations. ABD: Negative pain, nausea, vomiting. : Negative increase frequency, dysuria, blood in urine or stool. MUSC: Negative for muscle aches, edema. SKIN: Negative rash, lesions/sores. NEURO: Negative headache, dizziness, weakness. Physical Exam Physical Exam: GENERAL APPEARANCE NAD, activity normal for age, well developed/ well nourished, no cyanosis, pallor, or diaphoresis. EYES lids/conjunctiva normal. EARS/NOSE/THROAT Mucous membranes moist, nares normal, lips/teeth normal uvula midline without oral pharyngeal erythema, exudate or swelling TMs normal bilaterally. No lymphangitis/lymphedema. HEAD/NECK normocephalic atraumatic, no facial trauma, neck is supple. RESPIRATORY respiratory effort normal, speaks in full sentences, no tripod position, no accessory muscle use. Lungs clear to auscultation without rhonchi, wheezes, rales CARDIAC Regular rate and rhythm, no edema. ABDOMINAL Soft, ND/NT. No evidence of fluid wave. No pulsatile masses on exam, rebound tenderness, Mckinney sign or pain over Mcburney's point. MUSCLES/EXTREMITIES 2+ edema b/l upper and lower extremites SKIN Warm, pink and dry. No rashes, dermatoses, petechiae or lesions. NEUROLOGICAL Speech is clear and appropriate. Normal level of consciousness. Gait and coordination are normal. 5/5 strength in all extremities. PSYCH Normal mood and affect. Judgement/competence is appropriate Results & Data Results & Data Vital Signs (Past 12 Hours) Vital Signs Temp Pulse Resp BP Pulse Ox O2 Del Method 05/09/24 07:34 36.6 C 59 L 18 160/83 H 93 Room Air 05/09/24 03:59 36.6 C 61 20 144/75 H 97 Room Air PG Care Time/CCT Total # of Minutes Spent Total Time Spent with Patient: Total time spent is greater than 50% in coordination of care (as documented) at patient's floor/unit and/or counseling patient: Coding Level of Care Code 97095 SUB INP/OBS CARE 2/35MIN Diagnoses Nephrotic range proteinuria R80.9 CKD (chronic kidney disease) N18.9 Elevated troponin R79.89 Anemia D64.9 Cirrhosis of liver K74.60 Ascites R18.8 HTN (hypertension) I10 History of [place] (myocardial infarction) I25.2
[2024-05-09] MEDS: WARFARIN SOD 5 MG TAB PO SCH (16:12)
[2024-05-09] MEDS: FUROSEMIDE 80 MG TAB PO SCH (16:13)
[2024-05-10 06:45] LABS: Hematocrit (blood only) 27.9 % (42.0-52.0); Hemoglobin 9.6 g/dl (14.0-18.0); Mean Corpuscular Hemoglobin 31.3 pg (25.0-34.0); Mean Corpuscular Hgb Conc 34.4 g/dL (32.0-36.0); Mean Corpuscular Volume 90.9 fL (80.0-100.0); Mean Platelet Volume 9.8 fL (9.4-12.4); Platelet Count 247 K/uL (130-400); RDW Coefficient of Variation 12.7 % (11.5-14.5); RDW Standard Deviation 41.9 fL (36.4-46.3); Red Blood Count 3.07 M/uL (4.70-6.10); White Blood Count 4.19 K/ul (4.8-10.8)
[2024-05-10 07:14] LABS: Albumin Level 1.6 gm/dl (3.4-5.0); BUN Creatinine Ratio 23.2 (10-20); Calcium 8.3 mg/dl (8.6-10.3); Creatinine Clr Calc Pharmacy 64.3 ml/min; Phosphorus 3.7 mg/dl (2.5-4.9)
[2024-05-10 07:20] LABS: Prothrombin Time 10.9 Seconds (9.0-12.0)
[2024-05-10] MEDS: amLODIPine BESYLATE 5 MG TAB PO SCH (08:27)
[2024-05-10] MEDS ORDERED: FUROSEMIDE 20 MG TAB PO SCH (09:00)
--- NOTE | 2024-05-10 09:57 | Hospitalist Progress Note ---
Date of Service May 10, 2024 Assessment & Plan (1) Nephrotic range proteinuria: Plan: Nephrology suspects possible intrinsic renal disease Continue diuresis lasix 80 Mg po BID Continue spironolactone SPEP, UPEP, ANCA, complement, free kappa lambda light chain, glomerular basement membrane antibody, phospholipase A2 receptor antibody all drawn and pending Follow BMP Continue Daily weights, strict I's and O's, low-sodium diet, fluid restriction Cr 1.68 today (2) CKD (chronic kidney disease): Plan: BUN 43, creatinine 1.68 (around baseline 1.46 per [facility] records on 02/22) Avoid nephrotoxic agents where possible With nephrotic range proteinuria as above Appreciate nephrology consultation (3) Elevated troponin: Plan: Troponin with mild elevation at 37 then 35 several hours later-myocardial demand ischemia in the setting of chronic kidney disease ECG without ischemic changes, no chest pain Echocardiogram without wall motion abnormalities (4) Anemia: Plan: Hgb 11.0 on arrival; was most recently 11.3 on 02/22 (per patient's [facility] records), now decreased despite diuresis to 9.2, normocytic Iron studies are normal with transferrin saturation 37% B12, folate normal TSH high at 12, normal FT4--> could be from poor gut absorption of T4 due to gut wall edema? Recommend repeating TSH in 1 month No signs of active bleeding on clinical exam; trend CBC (5) Cirrhosis of liver: Plan: Patient has been trying to get in with [facility] in [place] A/P CT on 04/24 did reveal ascites and nodular contour to liver likely from fatty liver-he has been eating low carb diet now for 6 months but has been obese his whole adult life No evidence of liver dysfunction-INR, platelets normal ,etc Ascites improved on diuretics Anasarca from nephrotic syndrome GI consult appreciated-f/u on labs ordered for workup for cause of cirrhosis and f/u outpt with [facility] as scheduled for 06/06 (6) Ascites: Plan: Ultrasound-guided paracentesis ordered but not completed as he had no ascites- improved since previous outside CT scan due to being on lasix/aldactone (7) HTN (hypertension): Plan: BPs improved now with adding on amlodipine continue to monitor and adjust meds as needed diuresing (8) History of [place] (myocardial infarction): Plan: Continue aspirin, atorvastatin, metoprolol No acute issues Plan Disposition: Plan to d/c home today 05/10 if no further recommendations by nephrology. Full code VTE PPx: He is high risk for DVT given nephrotic syndrome-continue heparin SQ Admission and Anticipated Discharge Date Admission Date: May 06, 2024 Subjective Pt continues to show improvement in edema. Less swelling in hands and legs. Feels that he is ready to go home. Review of Systems Review of Systems: CONST: Negative for fever, body aches and chills. HENT: Negative for neck pain/stiffness, headache, congestion, sore throat, swelling. EYES: Negative for discharge/pain or vision changes. RESP: Negative for cough/hemoptysis and shortness of breath. CV: Negative chest pain, difficulty breathing, palpitations. ABD: Negative pain, nausea, vomiting. : Negative increase frequency, dysuria, blood in urine or stool. MUSC: Negative for muscle aches, edema. SKIN: Negative rash, lesions/sores. NEURO: Negative headache, dizziness, weakness. Physical Exam Physical Exam: GENERAL APPEARANCE NAD, activity normal for age, well developed/ well nourished, no cyanosis, pallor, or diaphoresis. EYES lids/conjunctiva normal. EARS/NOSE/THROAT Mucous membranes moist, nares normal, lips/teeth normal uvula midline without oral pharyngeal erythema, exudate or swelling TMs normal bilaterally. No lymphangitis/lymphedema. HEAD/NECK normocephalic atraumatic, no facial trauma, neck is supple. RESPIRATORY respiratory effort normal, speaks in full sentences, no tripod position, no accessory muscle use. Lungs clear to auscultation without rhonchi, wheezes, rales CARDIAC Regular rate and rhythm, no edema. ABDOMINAL Soft, ND/NT. No evidence of fluid wave. No pulsatile masses on exam, rebound tenderness, Mckinney sign or pain over Mcburney's point. MUSCLES/EXTREMITIES 2+ edema b/l upper and lower extremites SKIN Warm, pink and dry. No rashes, dermatoses, petechiae or lesions. NEUROLOGICAL Speech is clear and appropriate. Normal level of consciousness. Gait and coordination are normal. 5/5 strength in all extremities. PSYCH Normal mood and affect. Judgement/competence is appropriate Results & Data Results & Data Vital Signs (Past 12 Hours) Vital Signs Temp Pulse Resp BP Pulse Ox O2 Del Method 05/10/24 07:00 36.6 C 66 16 124/84 96 Room Air 05/09/24 22:54 36.8 C 68 18 148/85 H 97 Room Air PG Care Time/CCT Total # of Minutes Spent Total Time Spent with Patient: Total time spent is greater than 50% in coordination of care (as documented) at patient's floor/unit and/or counseling patient: Coding Level of Care Code 06490 SUB INP/OBS CARE 2/35MIN Diagnoses Nephrotic range proteinuria R80.9 CKD (chronic kidney disease) N18.9 Elevated troponin R79.89 Anemia D64.9 Cirrhosis of liver K74.60 Ascites R18.8 HTN (hypertension) I10 History of [place] (myocardial infarction) I25.2
--- NOTE | 2024-05-10 11:19 | Nephrology Progress Note ---
Date of Service May 10, 2024 Assessment & Plan (1) Nephrotic syndrome: (2) Chronic kidney disease, stage 3a: (3) Anemia: (4) Hypoalbuminemia: (5) Anasarca: (6) Pleural effusion, bilateral: (7) Nephrotic range proteinuria: (8) HTN (hypertension): (9) Acute kidney injury: Plan 68-year-old gentleman 68-year-old gentleman presented with almost 7 to 8 months history of progressive bilateral lower extremity edema, changes in kidney function over last few months with normal kidney function until July 2023 associated with anemia and nephrotic syndrome. CT scan done at outpatient facility showed no postrenal obstruction and kidneys are otherwise normal size but noted to have anasarca and concern for cirrhotic change in the liver. Recent day ago showed normal EF. LFTs were normal. Nephrotic syndrome and changes in kidney function over last 6 to 8 months asso ciated with microscopic hematuria and elevated blood pressure raise suspicion for underlying intrinsic renal disease such as membranous nephropathy, FSGS or other etiology. Cannot exclude possibility for paraproteinemia mediated kidney disease either. Abdominal ultrasound did not show any ascites fluid in the abdomen. Epogen 40,000 units x 1 dose given on 05/09/24 --Continue Lasix 80 mg orally twice daily, continue on spironolactone 100 mg twice a day, accurate intake and output and adjust diuretics dose accordingly. If UO remains low, will add Metolazone --continue amlodipine 10 mg daily, Lisinopril 40 bid for now --started on Warfarin 5 mg daily on 05/09/24 Admission and Anticipated Discharge Date Admission Date: May 06, 2024 Luisana Menjivar was seen and evaluated this morning. He continues to have significant volume overload and bilateral lower extremity edema but responding to diuretics with net negative and slow improvement. Overall feeling better. He has been walking around the hallway. Appetite decent and does not feel bloated anymore. Scrotal swelling improved. blood pressure improved. Hemoglobin low but has adequate iron store, B12 and folate. 24-hour urine proteinuria of almost 25 g. Started on warfarin. Review of Systems Review of Systems: Detailed review of system was done and pertinent positives and negatives are mentioned above. Physical Exam Constitutional: WD/WN, vitals as above + obese and + edematous; no acute distress Eyes: + anicteric sclerae Neck: normal visual inspection Respiratory: no respiratory distress Auscultation: lungs clear to auscultation bilaterally; no crackles and no wheezes Cardiovascular: Rate/Rhythm: regular rate and regular rhythm Heart Sounds: normal S1 and normal S2 Extremities: + edema (3 + b/l LE edema) Musculoskeletal: Extremities: extremities normal to inspection Skin: no rashes, warm and dry Neurologic: no focal motor deficits Psychiatric: Orientation: alert and oriented x 3 Affect: euthymic affect Results & Data Vital Signs (Past 12 Hours) Vital Signs Temp Pulse Resp BP Pulse Ox O2 Del Method 05/10/24 07:00 36.6 C 66 16 124/84 96 Room Air PG Care Time/CCT Total # of Minutes Spent Total Time Spent with Patient: Total time spent is greater than 50% in coordination of care (as documented) at patient's floor/unit and/or counseling patient: Coding Level of Care Code 59159 SUB INP/OBS CARE 3/50MIN Diagnoses Nephrotic syndrome N04.9 Chronic kidney disease, stage 3a N18.31 Anemia D64.9 Hypoalbuminemia E88.09 Anasarca R60.1 Pleural effusion, bilateral J90 Nephrotic range proteinuria R80.9 HTN (hypertension) I10 Acute kidney injury N17.9
[2024-05-11 07:41] LABS: INR 1.1 (0.9-1.1); Prothrombin Time 12.1 Seconds (9.0-12.0)
[2024-05-11 07:44] LABS: Albumin Level 1.6 gm/dl (3.4-5.0); BUN Creatinine Ratio 22.2 (10-20); Calcium 8.3 mg/dl (8.6-10.3); Creatinine Clr Calc Pharmacy 64.3 ml/min; Phosphorus 3.7 mg/dl (2.5-4.9); Potassium 5.1 mmol/L (3.5-5.1)
[2024-05-11 08:41] VITALS: BP 138/84; PULSE 68; RESP 16; TEMP 97.9; O2SAT 96
--- NOTE | 2024-05-11 12:06 | Hospitalist Progress Note ---
Date of Service May 11, 2024 Assessment & Plan (1) Nephrotic range proteinuria: Plan: Nephrology suspects possible intrinsic renal disease Continue diuresis lasix 80 Mg po BID Continue spironolactone SPEP, UPEP, ANCA, complement, free kappa lambda light chain, glomerular basement membrane antibody, phospholipase A2 receptor antibody all drawn and pending Follow BMP Continue Daily weights, strict I's and O's, low-sodium diet, fluid restriction Cr 1.67 today Nephrology considering adding metolazone Coumadin started, INR 1.1 (2) CKD (chronic kidney disease): Plan: BUN 43, creatinine 1.67 (around baseline 1.46 per [facility] records on 02/22) Avoid nephrotoxic agents where possible With nephrotic range proteinuria as above Appreciate nephrology consultation (3) Elevated troponin: Plan: Troponin with mild elevation at 37 then 35 several hours later-myocardial demand ischemia in the setting of chronic kidney disease ECG without ischemic changes, no chest pain Echocardiogram without wall motion abnormalities (4) Anemia: Plan: Hgb 11.0 on arrival; was most recently 11.3 on 02/22 (per patient's [facility] records), now decreased despite diuresis to 9.2, normocytic Iron studies are normal with transferrin saturation 37% B12, folate normal TSH high at 12, normal FT4--> could be from poor gut absorption of T4 due to gut wall edema? Recommend repeating TSH in 1 month No signs of active bleeding on clinical exam; trend CBC (5) Cirrhosis of liver: Plan: Patient has been trying to get in with [facility] in [place] A/P CT on 04/24 did reveal ascites and nodular contour to liver likely from fatty liver-he has been eating low carb diet now for 6 months but has been obese his whole adult life No evidence of liver dysfunction-INR, platelets normal ,etc Ascites improved on diuretics Anasarca from nephrotic syndrome GI consult appreciated-f/u on labs ordered for workup for cause of cirrhosis and f/u outpt with [facility] as scheduled for 06/06 (6) Ascites: Plan: Ultrasound-guided paracentesis ordered but not completed as he had no ascites- improved since previous outside CT scan due to being on lasix/aldactone (7) HTN (hypertension): Plan: BPs improved now with adding on amlodipine continue to monitor and adjust meds as needed diuresing (8) History of [place] (myocardial infarction): Plan: Continue aspirin, atorvastatin, metoprolol No acute issues Plan Disposition: Plan to d/c home today 05/11 if no further recommendations by nephrology. Full code VTE PPx: He is high risk for DVT given nephrotic syndrome-continue heparin SQ Admission and Anticipated Discharge Date Admission Date: May 06, 2024 Subjective No events overnight, pt resting comfortably in bed. Notes decreasing scrotal edema. Review of Systems Review of Systems: CONST: Negative for fever, body aches and chills. HENT: Negative for neck pain/stiffness, headache, congestion, sore throat, swelling. EYES: Negative for discharge/pain or vision changes. RESP: Negative for cough/hemoptysis and shortness of breath. CV: Negative chest pain, difficulty breathing, palpitations. ABD: Negative pain, nausea, vomiting. : Negative increase frequency, dysuria, blood in urine or stool. MUSC: Negative for muscle aches, edema. SKIN: Negative rash, lesions/sores. NEURO: Negative headache, dizziness, weakness. Physical Exam Physical Exam: GENERAL APPEARANCE NAD, activity normal for age, well developed/ well nourished, no cyanosis, pallor, or diaphoresis. EYES lids/conjunctiva normal. EARS/NOSE/THROAT Mucous membranes moist, nares normal, lips/teeth normal uvula midline without oral pharyngeal erythema, exudate or swelling TMs normal bilaterally. No lymphangitis/lymphedema. HEAD/NECK normocephalic atraumatic, no facial trauma, neck is supple. RESPIRATORY respiratory effort normal, speaks in full sentences, no tripod position, no accessory muscle use. Lungs clear to auscultation without rhonchi, wheezes, rales CARDIAC Regular rate and rhythm, no edema. ABDOMINAL Soft, ND/NT. No evidence of fluid wave. No pulsatile masses on exam, rebound tenderness, Mckinney sign or pain over Mcburney's point. MUSCLES/EXTREMITIES 2+ edema b/l upper and lower extremites SKIN Warm, pink and dry. No rashes, dermatoses, petechiae or lesions. NEUROLOGICAL Speech is clear and appropriate. Normal level of consciousness. Gait and coordination are normal. 5/5 strength in all extremities. PSYCH Normal mood and affect. Judgement/competence is appropriate Results & Data Results & Data Vital Signs (Past 12 Hours) Vital Signs Temp Pulse Resp BP Pulse Ox O2 Del Method 05/11/24 08:34 36.6 C 68 16 138/84 96 Room Air PG Care Time/CCT Total # of Minutes Spent Total Time Spent with Patient: Total time spent is greater than 50% in coordination of care (as documented) at patient's floor/unit and/or counseling patient: Coding Level of Care Code 23540 SUB INP/OBS CARE 2/35MIN Diagnoses Nephrotic range proteinuria R80.9 CKD (chronic kidney disease) N18.9 Elevated troponin R79.89 Anemia D64.9 Cirrhosis of liver K74.60 Ascites R18.8 HTN (hypertension) I10 History of [place] (myocardial infarction) I25.2
--- NOTE | 2024-05-11 12:22 | Nephrology Progress Note ---
Date of Service May 11, 2024 Assessment & Plan (1) Nephrotic syndrome: Plan: Symptoms started ~August 2023. Serologic evaluation pending, including C3/C4, SIEP, PLA2r, ANCA. Screening for viral hepatitis negative. CT of the abdomen has been recently completed at [facility]. Otto is aware that kidney biopsy will likely ultimately be required for definitive diagnosis. The importance of close outpatient follow up was stressed. Follow up will be arranged with Dr. Ha within the next 1-2 weeks. Edema is improving. Volume status acceptable. Kidney function stable. Tolerating lisinopril 40 mg twice daily. Continue furosemide 80 mg twice daily, spironolactone 100 mg twice daily, lisinopril 40 mg twice daily. Started Warfarin 5 mg daily on 05/09/24. INR remains 1.1. Suggest an additional 5 mg today. Monitoring has been coordinated through the Coumadin clinic with Dr. Arreola. Otto is scheduled to be seen in the Coumadin clinic on . Low sodium diet encouraged. Limiting fluid intake to 1.2 L/day. Dietary protein goal of 0.8-1.2 g/kg(IBW)/d reviewed. (2) Chronic kidney disease, stage 3a: Plan: Creatinine stable at 1.67 mg/dL. Nephrotic range proteinuria. Close outpatient follow up will be required at discharge. (3) Anemia: Plan: Epogen 40,000 units x 1 dose given on 05/09/24. (4) HTN (hypertension): Plan: BP acceptable. Volume status improving. Continue amlodipine, metoprolol, and lisinopril as Rx. Continue diuretics as Rx. Admission and Anticipated Discharge Date Admission Date: May 06, 2024 Subjective No acute events overnight. Otto was walking in the hallways this AM. He feels well. Edema improving. He would like to go home. He is well educated on dietary considerations and the plan of care. Good urine output. No lightheadedness or dizziness. Review of Systems Review of Systems: All systems reviewed & are unremarkable except as noted in HPI & below Physical Exam Constitutional: well developed, + morbidly obese and + edematous; no acute distress Eyes: + conjunctival abnormality and + anicter ic sclerae ENMT: Mouth: no oral mucosal abnormality and oral mucous membranes not dry Neck: normal visual inspection and trachea midline Respiratory: normal respiratory effort Auscultation: lungs clear to auscultation bilaterally Cardiovascular: Rate/Rhythm: regular rate Heart Sounds: normal S1 and normal S2 Extremities: + edema Musculoskeletal: Extremities: no cyanosis and no clubbing Skin: normal turgor; no rashes and no jaundice Neurologic: Motor/Sensory: no tremor and no asterixis Psychiatric: Orientation: alert and oriented x 3 Results & Data Vital Signs (Past 12 Hours) Vital Signs Temp Pulse Resp BP Pulse Ox O2 Del Method 05/11/24 08:34 36.6 C 68 16 138/84 96 Room Air Laboratory Results Laboratory Results - last 24 hr 05/11/24 06:13 PT 12.1 H INR 1.1 Sodium 139 Potassium 5.1 Chloride 111 H Carbon Dioxide 28 Anion Gap 0 L BUN 37 H Creatinine 1.67 H Est Cr Clr Drug Dosing 64.3 eGFR 44.31 BUN/Creatinine Ratio 22.2 H Glucose 95 Calcium 8.3 L Phosphorus 3.7 Albumin 1.6 L PG Care Time/CCT Total # of Minutes Spent Total Time Spent with Patient: Total time spent is greater than 50% in coordination of care (as documented) at patient's floor/unit and/or counseling patient: Coding Level of Care Code 68474 SUB INP/OBS CARE 3/50MIN Diagnoses Nephrotic syndrome N04.9 Chronic kidney disease, stage 3a N18.31 Anemia D64.9 HTN (hypertension) I10
--- NOTE | 2024-05-11 13:39 | Discharge Summary ---
Discharge Summary Date of Service May 11, 2024 Principal Dx & Hospital Course #1 = Principal Diagnosis (1) Nephrotic range proteinuria: Nephrology suspects possible intrinsic renal disease Continue diuresis lasix 80 Mg po BID Continue spironolactone SPEP, UPEP, ANCA, complement, free kappa lambda light chain, glomerular basement membrane antibody, phospholipase A2 receptor antibody all drawn and pending Follow BMP Continue Daily weights, strict I's and O's, low-sodium diet, fluid restriction Cr 1.67 today Nephrology considering adding metolazone Coumadin started, INR 1.1 (2) CKD (chronic kidney disease): BUN 43, creatinine 1.67 (around baseline 1.46 per [facility] records on 02/22) Avoid nephrotoxic agents where possible With nephrotic range proteinuria as above Appreciate nephrology consultation (3) Elevated troponin: Troponin with mild elevation at 37 then 35 several hours later-myocardial demand ischemia in the setting of chronic kidney disease ECG without ischemic changes, no chest pain Echocardiogram without wall motion abnormalities (4) Anemia: Hgb 11.0 on arrival; was most recently 11.3 on 02/22 (per patient's [facility] records), now decreased despite diuresis to 9.2, normocytic Iron studies are normal with transferrin saturation 37% B12, folate normal TSH high at 12, normal FT4--> could be from poor gut absorption of T4 due to gut wall edema? Recommend repeating TSH in 1 month No signs of active bleeding on clinical exam; trend CBC (5) Cirrhosis of liver: Patient has been trying to get in with [facility] in [place] A/P CT on 04/24 did reveal ascites and nodular contour to liver likely from fatty liver-he has been eating low carb diet now for 6 months but has been obese his whole adult life No evidence of liver dysfunction-INR, platelets normal ,etc Ascites improved on diuretics Anasarca from nephrotic syndrome GI consult appreciated-f/u on labs ordered for workup for cause of cirrhosis and f/u outpt with [facility] as scheduled for 06/06 (6) Ascites: Ultrasound-guided paracentesis ordered but not completed as he had no ascites- improved since previous outside CT scan due to being on lasix/aldactone (7) HTN (hypertension): BPs improved now with adding on amlodipine continue to monitor and adjust meds as needed diuresing (8) History of [place] (myocardial infarction): Continue aspirin, atorvastatin, metoprolol No acute issues Plan Disposition: Plan to d/c home today 05/11 if no further recommendations by nephrology. Full code VTE PPx: He is high risk for DVT given nephrotic syndrome-continue heparin SQ Admission HPI Per Admitting Provider Otto is a 68-year-old male with PMH of liver cirrhosis, OR, CAD s/p MALU, gastric banding, and CKD. He presented on 05/06 for worsening orthopnea and low er extremity edema x 2-[address] A/P performed on 04/24 that reported he had fluid throughout his abdomen/testicles/lower extremities bilaterally. Patient follows with [facility], and was recently referred to [facility] in [place] for anasarca suspected secondary to his liver cirrhosis. His PCP ordered the CT A/P when the swelling became progressively worse. While he denies SOB at rest or with exertion, he does endorse orthopnea, which only went away 2 days ago. Patient takes 80 mg of Lasix p.o. twice daily, as well as spironolactone 50 mg twice daily. He took his regular morning medicine today, and reports that his diuretics were increased 1 month ago: Lasix was increased from 1 pill twice daily to 2 pills twice daily, and spironolactone was increased from once daily to twice daily. Despite this, he is still having significant fluid overload. Patient has history of an OR 5 years ago for which she had 1 heart stent placed; he had no shortness of breath or chest pain secondary to the OR, and reports that he takes aspirin daily with good consistency. Patient sleeps in a recliner. No supplemental oxygen or CPAP at night. He reports that he sometimes feels like his heart is fluttering or racing fast, but he denies any chest palpitations or history of A-fib/a flutter; these episodes last around 10 seconds and they occur once every 3 weeks. He does report he has changed his diet recently; after he was told that he had low protein, he has been trying to have 100 grams of protein daily with chicken salads; however this led to significant bloating and he reports he is gained 14 pounds over the past week. He also reports that he was feeling sick on Monday and felt like his skin was tight like "leather" on his flanks, abdomen, and testicles. No history of CHF to his knowledge, but he is unsure. Patient does not ambulate with a walker or cane at baseline. He denies smoking, or tobacco use. No recent alcohol use; he does endorse heavy alcohol use in his 20s. No history of DVT/PE. Patient is hypertensive 165/89 at time of admission; vitals otherwise stable. ED course: Lasix 40 mg IV ROS: Patient endorses orthopnea, abdominal pain secondary to distention/swelling, nausea, dry heaves x 1 day over the weekend, loose stool, "leathery skin", LE edema, decreased urinary frequency (1/3rd of what he was peeing; noticed 2 months ago), and leg heaviness. Patient denies fever, chills, night-sweats, dizziness, lightheadedness, headaches, chest pain, chest palpitations, pleuritic CP, cough, vomiting, burning with urination, blood in the urine/stool, or dysuria. Note - the following labs were obtained from patient in the ED via [facility] portal: [facility] labs on Feb 22: Hgb 11.3 BUN 44 Cr 1.46 eGFR 52 Albumin 1.5 BNP 756 Discharge Exam GENERAL APPEARANCE NAD, activity normal for age, well developed/ well nourished, no cyanosis, pallor, or diaphoresis. EYES lids/conjunctiva normal. EARS/NOSE/THROAT Mucous membranes moist, nares normal, lips/teeth normal uvula midline without oral pharyngeal erythema, exudate or swelling TMs normal bilaterally. No lymphangitis/lymphedema. HEAD/NECK normocephalic atraumatic, no facial trauma, neck is supple. RESPIRATORY respiratory effort normal, speaks in full sentences, no tripod position, no accessory muscle use. Lungs clear to auscultation without rhonchi, wheezes, rales CARDIAC Regular rate and rhythm, no edema. ABDOMINAL Soft, ND/NT. No evidence of fluid wave. No pulsatile masses on exam, rebound tenderness, Mckinney sign or pain over Mcburney's point. MUSCLES/EXTREMITIES 2+ edema b/l upper and lower extremites SKIN Warm, pink and dry. No rashes, dermatoses, petechiae or lesions. NEUROLOGICAL Speech is clear and appropriate. Normal level of consciousness. Gait and coordination are normal. 5/5 strength in all extremities. PSYCH Normal mood and affect. Judgement/competence is appropriate Discharge Plan Discharge Items Patient Disposition: Home - Self-Care Reason For Visit: [employer] Discharge Diagnosis: nephrotic disease Activity: Resume your previous activity Non-emergency contact: Primary Care Provider Call non-emergency contact if: you have any medication questions and your symptoms worsen Follow-up/Referrals: Chito Bhardwaj D.O. [Primary Care Provider] - Diet: Low Sodium (2gm) Addtl Attending Provider Instructions: Follow up lab work to check INR level in 1 week. Pending Studies at Discharge: No Stand-Alone Forms: [employer], Smoking Cessation Medications and DC Order Prescriptions: No Action B12 1 tab PO DAILY furosemide 40 mg tablet 80 mg PO BID atorvastatin 20 mg tablet 20 mg PO DAILY metoprolol succinate 100 mg tablet extended release 24 hr 100 mg PO DAILY aspirin [Aspir-81] 81 mg Tablet,Delayed Release (Dr/Ec) 81 mg PO DAILY potassium chloride 20 mEq tablet,ER particles/crystals 20 meq PO UD Rx Instructions: per pt he takes 2 tablets po qam and 1 tablet po pm. Fill history shows 20 meq po qam fosinopril 40 mg tablet 40 mg PO BID spironolactone 50 mg tablet 50 mg PO BID Cinnamon 1 tab PO DAILY Co Q-10 1 cap PO DAILY Rx Instructions: unknown dose Vitamin C 1 tab PO DAILY Vitamin D3 1 tab PO DAILY magnesium glycinate 200 mg PO DAILY turmeric 1 cap PO DAILY zinc 1 tab PO DAILY Discharge Orders: Discharge Order (Routine); Ordered 05/11/24 Ordered By: Ben Seals Admission Data Admit Date/Time: 05/06/24 16:08 Attending Provider: Ben Seals Admit Provider: Donavan Rankin Primary Care Provider: Chito Bhardwaj Other Providers: Donavan Rankin; Asia Ha Ned J; Adamaris Arreola Hospital Stay Data Consultations 05/06/24 15:03 ED Decision to Admit Stat 05/06/24 19:12 Consult Nephrology Routine 05/06/24 20:23 Consult Gastroenterology Routine 05/10/24 12:03 Consult Anticoagulation Clinic Routine Diagnostic Imagining Performed 05/07/24 08:00 US abdomen ltd ascites Routine Pending Results Patient Have Any Pending Studies at Discharge: No Discharge Instructions Given to Patient (Per Discharging Provider) Follow up lab work to check INR level in 1 week. Total Time Total Time Spent Total Time Spent (In Minutes): 45 Coding Level of Care Code 16155 INP/OBS DISCH >30 MIN Diagnoses Nephrotic range proteinuria R80.9 CKD (chronic kidney disease) N18.9 Elevated troponin R79.89 Anemia D64.9 Cirrhosis of liver K74.60 Ascites R18.8 HTN (hypertension) I10 History of [place] (myocardial infarction) I25.2
[2024-05-11 16:08] LABS: AFP Tumor Marker Serum 0.6 ng/mL (<6.1); Anti Mitochondrial Antibody NEGATIVE (NEGATIVE); Anti Nuclear Antibody Screen NEGATIVE (NEGATIVE); Hepatitis A Antibody Total NON-REACTIVE (NON-REACTIVE); Hepatitis B Core Antibody IgM NON-REACTIVE (NON-REACTIVE); Hepatitis BE Antigen Nonreactive
[2024-05-12] MEDS ORDERED: POTASSIUM CHLORIDE 10 MEQ TABCR PO SCH (09:00)
[2024-05-13 09:48] LABS: Albumin 1.5 g/dL (3.8-4.8); Alpha 1 Globulin 0.2 g/dL (0.2-0.3); Alpha 2 Globulin 0.9 g/dL (0.5-0.9); Anti-Glom Basement Antibody <1.0 AI (<1.0); Beta-1-Globulin 0.2 g/dL (0.4-0.6); Beta-2-Globulin 0.3 g/dL (0.2-0.5); Complement C3 120 mg/dL (82-185); Free Kappa 79.8 mg/L (3.3-19.4); Free Lambda 72.3 mg/L (5.7-26.3); Gamma Globulin 0.8 g/dL (0.8-1.7); Monoclonal Protein Band 1 0.2 g/dL (NONE DETECTED); Monoclonal Protein Band 2 0.2 g/dL (NONE DETECTED); Monoclonal Protein Band 3 DNR g/dL (NONE DETECTED)
== END 2024-05-11 15:05 | disposition home or self-care (01) | DRG 683 ==
LOC: ED 13:25 → 2N 16:08 → SUATTDRO 16:08 → 2N 19:42